=== PATIENT | male | born 1960 | race Caucasian/White ===

== ENCOUNTER 2016-12-19 10:33 | Inpatient (IN) | payer OTHER ==
[~2016-12-19] VITALS: Ht 167.6 cm; Wt 87.1 kg
--- NOTE | 2016-12-19 10:33 | NUR ---
Patient was BIBA at this time.
[2016-12-19 10:40] VITALS: BP 179/114
[2016-12-19] MEDS ORDERED: LISI10TA11 PO (10:42)
[2016-12-19] MEDS ORDERED: METF1000 PO (10:42)
--- NOTE | 2016-12-19 10:46 | NUR ---
Patient taken to bed 04 via gurney per EMS.
[2016-12-19] MEDS ORDERED: NITROGLYCERIN 0.4 MG TAB SL ONE (10:50)
--- NOTE | 2016-12-19 10:50 | NUR ---
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
[2016-12-19] MEDS ORDERED: NACL 0.9% 1,000 ML IV ONE ×2 (11:15→11:55)
[2016-12-19 11:22] LABS: BASOPHILS # (AUTO) 0.1 K/uL (0.00-0.22); BASOPHILS % (AUTO) 0.8 % (0.0-2.0); EOSINOPHILS # (AUTO) 0.3 K/uL (0-0.4); EOSINOPHILS % (AUTO) 2.3 % (0.0-4.0); HEMATOCRIT 40.5 % (36-52); HEMOGLOBIN 13.2 g/dL (12.0-18.0); LYMPHOCYTES # (AUTO) 1.4 K/uL (2.0-11.5); MEAN CORPUSCULAR HEMOGLOBIN 28 pg (27-31); MEAN CORPUSCULAR HGB CONC 33 g/dL (33-37); MEAN CORPUSCULAR VOLUME 86 fL (80-94); MONOCYTES # (AUTO) 0.5 K/uL (0.8-1.0); MONOCYTES % (AUTO) 3.6 % (1.7-9.3); NEUTROPHILS # (AUTO) 10.6 K/uL (1.8-7.7); NEUTROPHILS % (AUTO) 82.3 % (42.2-75.2); PLATELET COUNT (AUTO) 340 K/uL (140-450); RED CELL DISTRIBUTION WIDTH 13.7 % (11.6-13.7); WHITE BLOOD COUNT (AUTO) 12.9 K/uL (4.8-10.8)
--- NOTE | 2016-12-19 11:40 | NUR ---
PT RESTING ON BED;NO ACUTE DISTRESS NOTED AT THSI TIME;WILL CONTINUE TO MONITOR PT.
[2016-12-19 11:42] LABS: INR 1.1 (0.8-1.2); PARTIAL THROMBOPLASTIN TIME 24.3 secs (22-35.6)
[2016-12-19 11:47] LABS: ALBUMIN 2.7 g/dL (3.4-5.0); ANION GAP 13.9 (8-16); CALCIUM 8.6 mg/dL (8.5-10.1); CARBON DIOXIDE 26.7 mmol/L (21-32); CREATININE 0.7 mg/dL (0.6-1.3); POTASSIUM 4.6 mmol/L (3.5-5.1); TOTAL BILIRUBIN 0.2 mg/dL (0.0-1.0); TOTAL PROTEIN, SERUM 7.1 g/dL (6.4-8.2)
--- NOTE | 2016-12-19 12:32 | NUR ---
PT ASKED TO REMOVED NC;PT STATES HE DON'T NEED IT AND HE'S NOT HAVING TROUBLE BREATHING;02 SAT OF 97%.
[2016-12-19 13:13] LABS: LACTIC ACID 2.5 mmol/L (0.4-2.0)
--- NOTE | 2016-12-19 13:38 | NUR ---
BACK FROM CT SCAN;NO ACUTE DISTRESS NOTED;PT PALCED IN ALL MONITORS;WILL CONTINUE TO MONITOR PT;
[2016-12-19 14:15] LABS: BILIRUBIN,URINE NEGATIVE (NEGATIVE); BLOOD, URINE NEGATIVE (NEGATIVE); COLOR,URINE YELLOW (YELLOW); LEUKOCYTE ESTERASE ,URINE NEGATIVE (NEGATIVE); NITRITE, URINE NEGATIVE (NEGATIVE); PROTEIN,URINE 2+ (NEGATIVE); UGLUCOSE 1+ (NEGATIVE); UROBILINOGEN,URINE 0.2 EU/dL (0.2 - 1)
[2016-12-19 14:16] LABS: APPEARANCE,URINE CLEAR (CLEAR)
[2016-12-19 14:19] LABS: BACTERIA,URINE RARE /HPF (None Seen); MUCUS,URINE 2+ /LPF (None Seen); RBC,URINE 0-3 /HPF (0-5); SQUAMOUS EPITHELIAL CELL,UR 0-3 /LPF (0-3 (FEW)); WBC,URINE 0-3 /HPF (0-5)
--- NOTE | 2016-12-19 14:28 | NUR ---
PT STATES HE'S FEELING MUCH BETTER NOW;DENIES ANY PAIN AT THIS TIME;NO ACUTE DISTRESS NOTED;WILL CONTINUE TO MONITOR PT.
[2016-12-19] MEDS ORDERED: AZITHROMYCIN 500 MG in DEXTROSE 5% 250 ML IV ONE (14:30)
[2016-12-19] MEDS ORDERED: cefTRIAXone 1,000 MG VIAL ONE (14:36)
--- NOTE | 2016-12-19 15:13 | NUR ---
Per Lab, LACTID ACID is 2.1. I made this known to Dr. Beaulieu.
[2016-12-19] MEDS ORDERED: AZITHROMYCIN 500 MG INJ VIAL IV ONE (15:34)
--- NOTE | 2016-12-19 16:08 | NUR ---
PT LYING ON BED; AT BEDSIDE;NO ACUTE DISTRESS NOTED;WILL CONTINUE TO MONITOR PT.
[2016-12-19] MEDS ORDERED: ONDANSETRON 4 MG/2 ML VIAL IVP PRN (16:10)
--- NOTE | 2016-12-19 16:13 | NUR ---
CALLED TELE TO GIVE REPORT;THEY WILL CALL BACK;WILL CONTINUE TO MONITOR PT;AND FOLLOW UP TO GIVE REPORT.
--- NOTE | 2016-12-19 16:33 | NUR ---
Patient will be admitted to care of DR SARAVIA. Admited to TELE. Will go to [facility] [address]. Belongings list completed. Report to VIVIANE BARONE.
[2016-12-19 17:00] VITALS: BP 162/113
--- NOTE | 2016-12-19 17:00 | NUR ---
CALLED DR SARAVIA CONCERNING BP 162/113 HR 113. PHONE LINE BUSY. WILL CONTINUE TO CALL.
--- NOTE | 2016-12-19 17:00 | NUR ---
PT ARRIVED ON UNIT FROM ER VIA GURNEY. PT AAOX4 ON ROOM AIR. PT AMBULATED TO BED. PT SHOWS NO S/S OF DISTRESS. PT SKIN IS INTACT. ON TELE MONITORING. IV NOTED ON THE R AC PATENT AND INTACT. SECOND IV NOTED ON THE L HAND PATENT AND INTACT. PT BED IS LOWERED AND FLAT WITH CALL LIGHT WITHIN REACH. PT HAS BACK PAIN 5/10. WILL MEDICATE WITH PRN MEDICATION. DISCUSSED PLAN OF CARE WITH PT. WILL CONTINUE TO MONITOR.
[2016-12-19] MEDS: BLOOD GLUCOSE MONITORING 1 DEV DEV FS SCH ×2 (17:06→20:25)
[2016-12-19] MEDS: INSULIN LISPRO SLIDING SCALE 100 UNITS/ML VIAL SUBQ PRN (17:38)
--- NOTE | 2016-12-19 18:20 | NUR ---
PT C/O SOB. PT PUT ON 2L 02 NC. WILL CONTINUE TO MONITOR.
[2016-12-19] MEDS: ACETAMINOPHEN 325 MG TAB PO PRN (18:46)
--- NOTE | 2016-12-19 19:00 | NUR ---
CALLED AGAIN FOR DR SARAVIA CONCERNING BP 162/113 HR 113. PHONE LINE BUSY. WILL CONTINUE TO CALL.
--- NOTE | 2016-12-19 19:20 | NUR ---
RECEIVED ORDERS FROM DR. LEGGETT. CONCERNING BP 163/119.
--- NOTE | 2016-12-19 19:25 | NUR ---
GAVE REPORT AT BEDSIDE WITH NIGHT NURSE. PT ENDORSED IN STABLE CONDITION.
--- NOTE | 2016-12-19 19:30 | NUR ---
ASSUMED CARE OF PATIENT, AWAKE, ALERT AND ORIENTED. NO COMPLAINS NOTED. 02 NC. NO DISTRESS. CALL LIGHT WITHIN REACH.
--- NOTE | 2016-12-19 19:33 | NUR ---
SPOKE TO DR HIGGINS AND INFORMED HIM ABOUT PATIENT'S ELEVATED BP. ORDERS RECEIVED
--- NOTE | 2016-12-19 20:00 | NUR ---
FAMILY AT BEDSIDE. PLAN OF CARE DISCUSSED WITH PATIENT AND FAMILY MEMBER AT BEDSIDE. CALL LIGHT WITHIN REACH. VITAL SIGNS STABLE.
[2016-12-19] MEDS: amLODIPine 5 MG TAB PO SCH (20:31)
[2016-12-19] MEDS: METOPROLOL 25 MG TAB PO SCH (20:31)
[2016-12-19] MEDS: LEVOFLOXACIN 750 MG/D5W PREMIX 150 ML IV SCH (21:26)
[2016-12-19 22:43] VITALS: BP 163/98
[2016-12-19] MEDS: ALBUTEROL 0.083% 2.5 MG/3 ML NEBU IH PRN (22:46)
[2016-12-19] MEDS: MORPHINE SULFATE 2 MG/ML SYR IVP PRN (23:51)
[2016-12-19 23:53] VITALS: BP 141/91
--- NOTE | 2016-12-20 | NUR ---
BREATHING TREATMENT DONE BY RT. PAIN MEDS GIVEN ORDERED. VITAL SIGNS STABLE NOTED. CALL LIGHT WITHIN REACH.
[2016-12-20] MEDS ORDERED: ZOLPIDEM 10 MG TAB PO PRN (02:20)
[2016-12-20] MEDS ORDERED: LORazepam 0.5 MG TAB PO PRN (02:20)
[2016-12-20 04:10] VITALS: BP 156/98
--- NOTE | 2016-12-20 04:11 | NUR ---
PATIENT SLEEPING WELL. O2 OFF. VITAL SIGNS STABLE NOTED. CALL LIGHT WITHIN REACH.
[2016-12-20] MEDS: MORPHINE SULFATE 2 MG/ML SYR IVP PRN ×3 (04:37→18:07)
[2016-12-20] MEDS: BLOOD GLUCOSE MONITORING 1 DEV DEV FS SCH ×4 (05:22→20:16)
[2016-12-20] MEDS: INSULIN LISPRO SLIDING SCALE 100 UNITS/ML VIAL SUBQ PRN ×2 (06:08→12:38)
[2016-12-20 06:22] LABS: BASOPHILS # (AUTO) 0.1 K/uL (0.00-0.22); BASOPHILS % (AUTO) 0.5 % (0.0-2.0); EOSINOPHILS # (AUTO) 0.1 K/uL (0-0.4); EOSINOPHILS % (AUTO) 1.1 % (0.0-4.0); HEMATOCRIT 33.9 % (36-52); HEMOGLOBIN 11.2 g/dL (12.0-18.0); LYMPHOCYTES # (AUTO) 1.5 K/uL (2.0-11.5); LYMPHOCYTES % (AUTO) 12.6 % (20.5-51.1); MEAN CORPUSCULAR HEMOGLOBIN 29 pg (27-31); MEAN CORPUSCULAR HGB CONC 33 g/dL (33-37); MEAN CORPUSCULAR VOLUME 86 fL (80-94); MONOCYTES # (AUTO) 0.6 K/uL (0.8-1.0); MONOCYTES % (AUTO) 4.9 % (1.7-9.3); NEUTROPHILS # (AUTO) 9.8 K/uL (1.8-7.7); NEUTROPHILS % (AUTO) 80.9 % (42.2-75.2); PLATELET COUNT (AUTO) 306 K/uL (140-450); RED BLOOD CELL COUNT(AUTO) 3.93 MIL/uL (4.20-6.10); RED CELL DISTRIBUTION WIDTH 13.5 % (11.6-13.7); WHITE BLOOD COUNT (AUTO) 12.1 K/uL (4.8-10.8)
[2016-12-20 06:59] LABS: ALBUMIN 2.6 g/dL (3.4-5.0); ANION GAP 12.1 (8-16); CALCIUM 8.6 mg/dL (8.5-10.1); CARBON DIOXIDE 27.8 mmol/L (21-32); CREATININE 0.6 mg/dL (0.6-1.3); POTASSIUM 3.9 mmol/L (3.5-5.1); TOTAL BILIRUBIN 0.2 mg/dL (0.0-1.0); TOTAL PROTEIN, SERUM 6.5 g/dL (6.4-8.2)
--- NOTE | 2016-12-20 07:15 | NUR ---
RECEIVED REPORT FROM NIGHT NURSE. PT IS AAOX4 WELSH SPEAKING. ON O25L VIA FACE MASK, SKIN INTACT IV TO RIGHT AC 20G SALINE LOCK PATENT AND INTACT. PT STATES NO SOB AT THIS TIME. INITIAL ASSESSMENT COMPLETED, REVIEWED PLAN OF CARE WITH PT, PT VERBALIZED UNDERSTANDING. ALL SAFETY PRECAUTIONS MET. CALL LIGHT WITHIN REACH. WILL CONTINUE TO MONITOR.
--- NOTE | 2016-12-20 07:15 | NUR ---
ENDORSED CARE AT BEDSIDE WITH ROBERT BARONE. PATIENT IN STABLE CONDITION.
[2016-12-20 08:00] VITALS: BP 158/94
[2016-12-20] MEDS: ALBUTEROL 0.083% 2.5 MG/3 ML NEBU IH PRN ×2 (08:34→21:38)
--- NOTE | 2016-12-20 09:00 | NUR ---
RECEIVED PATIENT FROM NURSE MARTÍNEZ FOR CONT OF CARE. IV ON THE R AC HEPLOCK PT IS AWKAE AND ORIENTED.
--- NOTE | 2016-12-20 09:02 | NUR ---
PATIENT HAS BEEN SCREENED AND CATEGORIZED HIGH NUTRITION RISK. PATIENT WILL BE SEEN WITHIN 1-2 DAYS OF ADMISSION. 12/20/16-12/21/[address]
[2016-12-20] MEDS: METOPROLOL 25 MG TAB PO SCH ×2 (09:23→20:03)
[2016-12-20] MEDS: LISINOPRIL 10 MG TAB PO SCH (09:23)
--- NOTE | 2016-12-20 09:30 | NUR ---
ENDORSED PLAN OF CARE TO BENITO BARONE.
[2016-12-20] MEDS: ENOXAPARIN 40 MG/0.4 ML SYR SUBQ SCH (09:33)
[2016-12-20] MEDS: amLODIPine 5 MG TAB PO SCH (09:34)
--- NOTE | 2016-12-20 09:38 | NUR ---
PAIN REPORTED ON HIS BACK AT 8/10 MORPHINE GIVEN VIA IV PUSH
--- NOTE | 2016-12-20 10:00 | NUR ---
SPOKE WITH [facility] PHARMACIST WILL GIVE X1 MEDS FOR METOPROLOL, LISINOPRIL AND AMLODIPINE
--- NOTE | 2016-12-20 10:00 | NUR ---
PATIENT VOMITED. STRIP OFF THE BED. CHANGED LINENS AND CHANGED GOWNS. COMMUNICATED WITH CHRISTINE ANSARI PHARMACIST RE: AM MEDS IF CAN BE GIVEN AGAIN
[2016-12-20] MEDS ORDERED: amLODIPine 5 MG TAB PO SCH (10:39)
[2016-12-20] MEDS ORDERED: LISINOPRIL 10 MG TAB PO SCH (10:41)
[2016-12-20] MEDS: ACETAMINOPHEN 325 MG TAB PO PRN (10:41)
[2016-12-20] MEDS ORDERED: METOPROLOL 25 MG TAB PO SCH (10:42)
--- NOTE | 2016-12-20 10:57 | NUR ---
CM NOTE INITIAL REVIEW SENT TO [facility] FAX# [phone] PH# JANUARY [phone]
--- NOTE | 2016-12-20 11:46 | NUR ---
12/20/16 RD INITIAL ASSESSMENT COMPLETED PLEASE REFER TO NUTRITION ASSESSMENT UNDER CARE ACTIVITY FOR ESTIMATED NUTRITIONAL NEEDS. RD RECOMMENDATIONS: 1. CONTINUE ON CARDIAC CCHO 75 GM DIET TOLERATED. 2. ENCOURAGE INCREASED PO INTAKES. --RD TO ADD DIET HEALTH SHAKE BID FOR ADDITIONAL 400 KCAL AND 14 GM PROTEIN PER DAY. 3. RD WILL F/U 3-5 DAYS; MODERATE RISK. JEAN CLAUDE CRAIN RD
[2016-12-20 12:24] VITALS: BP 148/87
--- NOTE | 2016-12-20 12:30 | NUR ---
SEEN PATIENT AWAKE. ADMINSITERED INSULIN ORDERED DUE TO ELEVATE BS LEVEL VS REMAIN ELEVATED WITH BP 148/77 HR 103 WILL NOTIFY
--- NOTE | 2016-12-20 14:30 | NUR ---
DR SARAVIA AT THE BEDSIDE. NOTIFIED RE: ELEVATED BP AND HR. MD TO ADJUST MEDS, REPORTED ON POSSIBLE SIDE EFFECT OF NAUSEA AND VOMITING TO THE PATIENT ON USE OF MORPHINE. MD TO GIVE NORCO FOR PAIN MGT
[2016-12-20 16:00] VITALS: BP 121/87
[2016-12-20] MEDS: HYDROcodone/APAP 5/325 MG 1 TAB TAB PO PRN ×2 (16:55→23:11)
--- NOTE | 2016-12-20 17:02 | NUR ---
PATIENT REPORTED PAIN ON HIS BACK ADMINISTERED NORCO 1 TAB TO CONTROL SX REPOSITIONED PATEINT. PERFORMED SLIGHT CLEAN BATH
--- NOTE | 2016-12-20 17:56 | NUR ---
PER RADIOLOGY [id number] PT NEEDS TO BE NPO AFTER DINNER FOR AT LEAST [address] OF THE ABD TOB PERFORMED.
--- NOTE | 2016-12-20 18:10 | NUR ---
DISREGARD PAIN ASSESSMENT AND MORPHINE ADMINISTRATION. WRONG PATIENT
--- NOTE | 2016-12-20 18:38 | NUR ---
CONSENTS SIGNED BY THE PATIENT. AT THE BEDSIDE. OFFERED [employer] MATE SERVICES BUT FAMILY PREFERS TO TRANSLATE TO THE PATIENT. SIGNED CONSENTS FOR MEDIPORT PLACEMENT AT THE CHART. NEW ORDER FROM DR HIGGINS TO START PT ON IVF AFTER PT IS NPO AFTER MIDNIGHT
--- NOTE | 2016-12-20 18:40 | NUR ---
NO FOOD INTAKE SINCE [id number]
--- NOTE | 2016-12-20 19:02 | NUR ---
ROUNDS MADE PATIENT IS WITH THE . SLEEPING RESTING COMFORTABLY SIDE RAILS UP CALL LIGHT WITHIN REACH
--- NOTE | 2016-12-20 19:10 | NUR ---
RECEIVED PT IN STABLE CONDITION FROM ABISAI OLIVER. NO SOB NO SIGNS OF DISTRESS. PT IS AOX4, [place] SPEAKING, AMBULATORY. VS STABLE ON ROOM AIR. PT WITH IV TO RT AC 20G PATENT, ASYMPTOMATIC, INTACT, SALINE LOCKED. PT DENIES PAIN AT THIS TIME. SKIN IS INTACT. PT IS NPO AT THIS TIME FOR CT OF ABDOMEN TONIGHT. EDUCATED PT THAT HE MAY EAT DINNER AFTER CT THEN HE WILL BE NPO AND ON IVF AFTER MIDNIGHT FOR MEDIPORT PLACEMENT PROCEDURE IN AM, PT VERBALIZED UNDERSTANDING. FAMILY AT BEDSIDE. PLAN OF CARE DISCUSSED WITH PT AND FAMILY. SAFETY MEASURES IN PLACE. CALL LIGHT WITHIN REACH. WILL CONTINUE TO MONITOR.
[2016-12-20 20:00] VITALS: BP 142/84
[2016-12-20] MEDS: LEVOFLOXACIN 750 MG/D5W PREMIX 150 ML IV SCH (20:03)
--- NOTE | 2016-12-20 20:16 | NUR ---
PT TOLERATED DUE MEDS WELL. NO SOB, NO SIGNS OF DISTRESS. IV SITE ASYMPTOMATIC, INTACT, PATENT, IVPB RUNNING. BLOOD SUGAR 147, NO COVERAGE NEEDED. PT DENIES PAIN AT THIS TIME. PLAN OF CARE DISCUSSED WITH PT. SAFETY MEASURES IN PLACE. CALL LIGHT WITHIN REACH. WILL CONTINUE TO MONITOR.
--- NOTE | 2016-12-20 20:35 | NUR ---
SPOKE WITH FLEET SERVICE MANAGER AND ASKED WHEN HE WILL BE COMING FOR PT, FLEET SERVICE MANAGER STATED THAT ORDER FOR CT WAS SUPPOSED TO BE CHANGED TO INCLUDE PELVIS. AM NURSE DID NOT ENDORSE, WILL CALL MD TO CLARIFY ORDER.
--- NOTE | 2016-12-20 20:38 | NUR ---
PAGED MD HIGGINS APPLICATION SUPPORT ADMINISTRATOR FOR MD SARAVIA, WAITING FOR DONAL BACK.
--- NOTE | 2016-12-20 20:39 | NUR ---
SPOKE WITH MD GISELA MD STATED IT IS OK TO CHANGE ORDER TO CT ABD WITH PELVIS.
--- NOTE | 2016-12-20 20:51 | NUR ---
SPOKE WITH ELECTROMECHANICAL ENGINEER, ELECTROMECHANICAL ENGINEER MADE AWARE THAT ORDER WAS CLARIFIED AND CHANGED, ELECTROMECHANICAL ENGINEER STATED HE WILL BE COMING BY SOON TO GET PT FOR CT.
--- NOTE | 2016-12-20 21:40 | NUR ---
PT C/O NOT FEELING WELL, CHECKED VS, STABLE ON ROOM AIR. RT AT BEDSIDE, PT STATED HE WOULD LIKE A BREATHING TREATMENT AT THIS TIME. DURING TREATMENT PT STATED HE FELT BETTER.
--- NOTE | 2016-12-20 21:50 | NUR ---
PT TO CT IN STABLE CONDITION
--- NOTE | 2016-12-20 22:23 | NUR ---
PROVIDED PT WITH SANDWICH AND SNACKS, PT C/O PAIN, REQUESTED NORCO. EXPLAINED THAT MEDICATION CANNOT BE GIVEN UNTIL 6 HOURS AFTER LAST DOSE, PT VERBALIZED UNDERSTANDING AND STATED HE WILL WAIT. NO SOB, NO SIGNS OF DISTRESS. IV SITE ASYMPTOMATIC, INTACT, PATENT, SALINE LOCKED. PLAN OF CARE DISCUSSED WITH PT. SAFETY MEASURES IN PLACE. CALL LIGHT WITHIN REACH. WILL CONTINUE TO MONITOR.
[2016-12-21] VITALS: BP 144/89
--- NOTE | 2016-12-21 00:05 | NUR ---
VS STABLE ON ROOM AIR. NO SOB, NO SIGNS OF DISTRESS. IV SITE ASYMPTOMATIC, INTACT, PATENT, STARTED IVF PER MD ORDER, EDUCATED PT THAT HE IS NPO STARTING NOW, PT VERBALIZED UNDERSTANDING. PT DENIES PAIN AT THIS TIME. PLAN OF CARE DISCUSSED WITH PT. SAFETY MEASURES IN PLACE. CALL LIGHT WITHIN REACH. WILL CONTINUE TO MONITOR.
[2016-12-21] MEDS: DEXT 5% / NACL 0.9% 1,000 ML IV SCH ×2 (00:15→06:50)
--- NOTE | 2016-12-21 02:12 | NUR ---
PT ASLEEP IN BED. NO SOB, NO SIGNS OF DISTRESS. IV SITE ASYMPTOMATIC, INTACT, PATENT, IVF RUNNING. SAFETY MEASURES IN PLACE. CALL LIGHT WITHIN REACH. WILL CONTINUE TO MONITOR.
[2016-12-21 04:00] VITALS: BP 147/86
--- NOTE | 2016-12-21 04:10 | NUR ---
HR TACHY, OTHER VS WNL ON ROOM AIR. NO SOB, NO SIGNS OF DISTRESS. IV SITE ASYMPTOMATIC, INTACT, PATENT, IVF RUNNING. PT DENIES PAIN AT THIS TIME. PLAN OF CARE DISCUSSED WITH PT. SAFETY MEASURES IN PLACE. CALL LIGHT WITHIN REACH. WILL CONTINUE TO MONITOR.
[2016-12-21] MEDS ORDERED: PNEUMOCOCCAL VACCINE 23 MCG/0.5 ML VIAL IMVAC PRN (05:05)
[2016-12-21 05:41] LABS: BASOPHILS % (AUTO) 0.3 % (0.0-2.0); EOSINOPHILS # (AUTO) 0.1 K/uL (0-0.4); EOSINOPHILS % (AUTO) 0.8 % (0.0-4.0); HEMATOCRIT 30.5 % (36-52); LYMPHOCYTES # (AUTO) 1.9 K/uL (2.0-11.5); LYMPHOCYTES % (AUTO) 16.6 % (20.5-51.1); MEAN CORPUSCULAR HEMOGLOBIN 28 pg (27-31); MEAN CORPUSCULAR HGB CONC 33 g/dL (33-37); MEAN CORPUSCULAR VOLUME 86 fL (80-94); MONOCYTES # (AUTO) 0.6 K/uL (0.8-1.0); MONOCYTES % (AUTO) 5.5 % (1.7-9.3); NEUTROPHILS # (AUTO) 8.7 K/uL (1.8-7.7); NEUTROPHILS % (AUTO) 76.8 % (42.2-75.2); PLATELET COUNT (AUTO) 351 K/uL (140-450); RED BLOOD CELL COUNT(AUTO) 3.55 MIL/uL (4.20-6.10); RED CELL DISTRIBUTION WIDTH 13.6 % (11.6-13.7); WHITE BLOOD COUNT (AUTO) 11.3 K/uL (4.8-10.8)
[2016-12-21 06:03] LABS: ALBUMIN 2.6 g/dL (3.4-5.0); ANION GAP 9.5 (8-16); CALCIUM 8.8 mg/dL (8.5-10.1); CARBON DIOXIDE 30.3 mmol/L (21-32); CREATININE 0.8 mg/dL (0.6-1.3); POTASSIUM 3.8 mmol/L (3.5-5.1); TOTAL BILIRUBIN 0.2 mg/dL (0.0-1.0); TOTAL PROTEIN, SERUM 6.4 g/dL (6.4-8.2)
[2016-12-21] MEDS: BLOOD GLUCOSE MONITORING 1 DEV DEV FS SCH ×4 (06:47→20:15)
--- NOTE | 2016-12-21 07:27 | NUR ---
ENDORSED PT IN STABLE CONDITION TO ABISAI GUTIERREZ. ALL NEEDS HAVE BEEN MET AT THIS TIME.
--- NOTE | 2016-12-21 07:28 | NUR ---
RECEIVED REPORT FROM NIGHT RN AT PT BEDSIDE. PT RESTING IN BED. DENIES DISCOMFORT. NO S/S OF ACUTE DISTRESS. AAOX4. IV SITE PATENT AND INTACT. ORIENTED PT TO CALL LIGHT AND ENVIRONMENT. BED IN LOWEST POSITION. SAFETY MEASURES ENSURED.
[2016-12-21 08:00] VITALS: BP 151/90
[2016-12-21] MEDS ORDERED: ceFAZolin 1,000 MG VIAL ONE (08:07)
[2016-12-21] MEDS ORDERED: BUPIVACAINE-MPF/EPI 0.25% 30 ML VIAL INJ ONE (08:08)
[2016-12-21] MEDS ORDERED: LIDOCAINE 1% 0 ML ONE (08:27)
--- NOTE | 2016-12-21 08:34 | NUR ---
PATIENT TAKEN OFF FLOOR FOR OR PROCEDURE. NO S/S OF ACUTE DISTRESS.
[2016-12-21] MEDS ORDERED: fentaNYL 0.05 MG/ML VIAL ONE (09:09)
[2016-12-21] MEDS ORDERED: MIDAZOLAM 2 MG/2 ML VIAL ONE (09:09)
--- NOTE | 2016-12-21 10:22 | NUR ---
PATIENT RETURNED FROM OR. PROCEDURE NOT DONE, DR. BURGOS STATED HE IS NOT DOING THE CASE. PATIENT IN BED, REFUSING ORAL MEDICATIONS AT THIS TIME DUE TO C/O NAUSEA. DR. SARAVIA PAGED.
[2016-12-21] MEDS: amLODIPine 5 MG TAB PO SCH (10:31)
[2016-12-21] MEDS: LISINOPRIL 10 MG TAB PO SCH (10:31)
[2016-12-21] MEDS: METOPROLOL 25 MG TAB PO SCH ×2 (10:32→20:12)
[2016-12-21] MEDS: HYDROcodone/APAP 5/325 MG 1 TAB TAB PO PRN ×3 (10:32→22:43)
[2016-12-21] MEDS: ENOXAPARIN 40 MG/0.4 ML SYR SUBQ SCH (10:33)
--- NOTE | 2016-12-21 10:58 | NUR ---
CM NOTE CONCURRENT REVIEW SENT TO [facility] FAX# [phone] PH# JANUARY [phone]
[2016-12-21 12:00] VITALS: BP 154/91
[2016-12-21] MEDS: INSULIN LISPRO SLIDING SCALE 100 UNITS/ML VIAL SUBQ PRN ×2 (12:10→20:30)
--- NOTE | 2016-12-21 13:50 | NUR ---
FAMILY AT BEDSIDE, MADE AWARE OF UPCOMING PLANS AND PROCEDURES. DR. SARAVIA HERE TO SEE PATIENT. WILL CONTINUE TO MONITOR.
[2016-12-21] MEDS: guaiFENesin/CODEINE 100/10MG 5 ML UDC PO PRN ×2 (14:54→21:11)
[2016-12-21 16:00] VITALS: BP 116/82
--- NOTE | 2016-12-21 18:33 | NUR ---
SPOKE WITH DR. BURGOS. PATIENT WILL HAVE MEDIPORT PLACEMENT IN OR TOMORROW.
--- NOTE | 2016-12-21 19:30 | NUR ---
REPORT GIVEN TO NURSE BANKS AT PT BEDSIDE. PT MADE AWARE OF UPCOMING PLANS AND PROCEDURES. NO S/S OF ACUTE DISTRESS.
--- NOTE | 2016-12-21 19:30 | NUR ---
Patient's Plan of Care was discussed and reviewed with FIELD TECH: ELIA
--- NOTE | 2016-12-21 19:33 | NUR ---
PATIENT IS CURRENTLY AWAKE ALERT ORIENTED RESTING IN BED DENIES PAIN AND DISCOMFORT AT THIS TIME.COUGHING INTERMITTENTLY BUT NO SOB O2SAT IS 98% PATIENT IS AMBULATORY GOING TO THE BATHROOM AND BACK TO BED WITHOUT ASSISTANCE.PATIENT ENCOURAGED TO CALL FOR ASSISTANCE CALL LIGHT WITHIN REACH.
[2016-12-21 20:00] VITALS: BP 164/95
--- NOTE | 2016-12-21 20:49 | NUR ---
NO DISTRESS/SOB/WHEEZING NOTED AT THIS TIME. NO INDICATION FOR HHN PRN TX.
--- NOTE | 2016-12-21 21:11 | NUR ---
PATIENT IS COUGHING ON AND OFF AND HAD REQUESTED FOR MEDICATION TO HELP WITH HIS COUGH EARLIER. BUT, IT WASN'T TIME YET. SO NOW THAT HE IS DUE FOR HIS MEDICATION I ADMINISTERED THE COUGH MEDICATION.
[2016-12-21] MEDS: LEVOFLOXACIN 750 MG/D5W PREMIX 150 ML IV SCH (21:31)
--- NOTE | 2016-12-21 21:34 | NUR ---
MAHSA CURRIE CALLED AND OVER THE PHONE ASKED ME TO TRANSLATE TO THE PATIENT HIS PLAN FOR THE PATIENT AND I WAS ABLE TO TRANSLATE PATIENT'S CONCERN TO MD WELL.MD ASKED FOR ME TO ASK THE PATIENT IF HE WANTS TO HAVE THE MEDIPORT PLACEMENT TOMORROW PATIENT AGREED BUT MD SAID IT WILL HAPPEN AROUND 11AM PATIENT AGREED THEN PHYSICIAN HUNG UP THE PHONE.NO NEW ORDERS RECEIVED FROM MAHSA CURRIE.
--- NOTE | 2016-12-21 22:15 | NUR ---
PATIENT WAS GIVEN FOOD TO EAT BEFORE HE IS NPO AFTER MIDNIGHT.WILL CONTINUE TO MONITOR.
[2016-12-22 00:20] VITALS: BP 142/81
--- NOTE | 2016-12-22 00:30 | NUR ---
PATIENT IS CURRENTLY RESTING IN BED SLEEPING NO DISTRESS.NO COMPLAINS OF PAIN OR DISCOMFORT.WILL CONTINUE TO MONITOR.CALL LIGHT WITHIN REACH.
--- NOTE | 2016-12-22 02:55 | NUR ---
PATIENT IS CURRENTLY RESTING IN BED SLEEPING IN BED.WILL CONTINUE TO MONITOR.
--- NOTE | 2016-12-22 04:00 | NUR ---
PATIENT SLEEPING WELL IN BED IN NO DISTRESS WILL CONTINUE TO MONITOR. CALL LIGHT WITHIN REACH WILL CONTINUE TO MONITOR.
[2016-12-22 04:45] VITALS: BP 154/91
--- NOTE | 2016-12-22 06:37 | NUR ---
PATIENT IS CURRENTLY RESTING IN BED DENIES PAIN AND DISCOMFORT NEEDS MET.WILL CONTINUE TO OBSERVE.
[2016-12-22] MEDS: BLOOD GLUCOSE MONITORING 1 DEV DEV FS SCH ×2 (06:38→11:53)
[2016-12-22 06:49] LABS: BASOPHILS % (AUTO) 0.4 % (0.0-2.0); EOSINOPHILS # (AUTO) 0.1 K/uL (0-0.4); EOSINOPHILS % (AUTO) 1.2 % (0.0-4.0); HEMATOCRIT 29.5 % (36-52); HEMOGLOBIN 9.7 g/dL (12.0-18.0); LYMPHOCYTES % (AUTO) 20.3 % (20.5-51.1); MEAN CORPUSCULAR HEMOGLOBIN 28 pg (27-31); MEAN CORPUSCULAR HGB CONC 33 g/dL (33-37); MEAN CORPUSCULAR VOLUME 86 fL (80-94); MONOCYTES # (AUTO) 0.6 K/uL (0.8-1.0); NEUTROPHILS # (AUTO) 7.1 K/uL (1.8-7.7); NEUTROPHILS % (AUTO) 72.1 % (42.2-75.2); PLATELET COUNT (AUTO) 343 K/uL (140-450); RED BLOOD CELL COUNT(AUTO) 3.43 MIL/uL (4.20-6.10); RED CELL DISTRIBUTION WIDTH 13.7 % (11.6-13.7); WHITE BLOOD COUNT (AUTO) 9.8 K/uL (4.8-10.8)
[2016-12-22 07:22] LABS: ALBUMIN 2.9 g/dL (3.4-5.0); ANION GAP 11.4 (8-16); CALCIUM 8.8 mg/dL (8.5-10.1); CARBON DIOXIDE 29.2 mmol/L (21-32); CREATININE 0.6 mg/dL (0.6-1.3); POTASSIUM 3.6 mmol/L (3.5-5.1); TOTAL BILIRUBIN 0.2 mg/dL (0.0-1.0); TOTAL PROTEIN, SERUM 6.7 g/dL (6.4-8.2)
--- NOTE | 2016-12-22 07:27 | NUR ---
PATIENT STABLE REPORT ENDORSED AT BEDSIDE TO ABISAI LEO.
--- NOTE | 2016-12-22 07:28 | NUR ---
RECEIVED REPORT FROM NIGHT NURSE AT PT BEDSIDE. PT RESTING IN BED. NO S/S OF ACUTE DISTRESS. DENIES PAIN. IV SITE PATENT AND INTACT. CALL LIGHT WITHIN REACH. PT MADE AWARE OF UPCOMING PLANS AND PROCEDURES. WILL CONTINUE TO MONITOR.
[2016-12-22 08:00] VITALS: BP 147/94
--- NOTE | 2016-12-22 10:00 | NUR ---
SPOKE WITH DR. BURGOS PATIENT WAS PLANNED FOR 1200 BUT IS UNABLE TO FIND ANESTHESIOLOGIST FOR PROCEDURE, MD WILL CONTINUE TO FIND.
[2016-12-22] MEDS: amLODIPine 5 MG TAB PO SCH (10:03)
[2016-12-22] MEDS: METOPROLOL 25 MG TAB PO SCH (10:03)
[2016-12-22] MEDS: LISINOPRIL 10 MG TAB PO SCH (10:03)
[2016-12-22] MEDS: ENOXAPARIN 40 MG/0.4 ML SYR SUBQ SCH (10:04)
[2016-12-22] MEDS: HYDROcodone/APAP 5/325 MG 1 TAB TAB PO PRN (11:47)
[2016-12-22 12:00] VITALS: BP 130/86
--- NOTE | 2016-12-22 13:00 | NUR ---
SPOKE WITH DR. BURGOS REGARDING SURGICAL PROCEDURE. MD WILL NOT BE ABLE TO DO PROCEDURE DUE TO LACK OF ANESTHESIOLOGIST. PATIENT TO BE D/C'D HOME WITH FOLLOW UP APPOINTMENT OUTPATIENT. PATIENT MADE AWARE, VERBALIZED UNDERSTANDING.
--- NOTE | 2016-12-22 14:20 | NUR ---
SPOKE WITH DR. SARAVIA. PATIENT OKAY TO BE D/C'D HOME WITH FOLLOW UP APPOINTMENTS.
[2016-12-22 14:31] LABS: HEMATOCRIT 27.7 % (36-52); HEMOGLOBIN 9.1 g/dL (12.0-18.0)
[2016-12-22] MEDS: guaiFENesin/CODEINE 100/10MG 5 ML UDC PO PRN (15:31)
[2016-12-22 16:00] VITALS: BP 131/69
--- NOTE | 2016-12-22 16:15 | NUR ---
PATIENT DISCHARGE INSTRUCTIONS GIVEN TO PATIENT AND , VERBALIZED UNDERSTANDING. NO S/S OF ACUTE DISTRESS. DENIES DISCOMFORT. VS STABLE. IV REMOVED, CANULA INTACT. AAOX4. PATIENT AMBULATORY WITH CANE. DISCHARGE FOLLOW UP INSTRUCTIONS GIVEN, VERBALIZED UNDERSTANDING. PATIENT WHEELED TO FRONT LOBBY WITH .
== END 2016-12-22 16:15 | disposition home or self-care (01) | DRG 136 ==
LOC: MED 10:33 → MTU 16:16
PROVIDERS: ADMIT Hospitalist; ATTEND Hospitalist
DX: C78.02 Secondary malignant neoplasm of left lung (principal); C78.1 Secondary malignant neoplasm of mediastinum; C78.7 Secondary malignant neoplasm of liver and intrahepatic bile duct; C79.72 Secondary malignant neoplasm of left adrenal gland; C79.00 Secondary malignant neoplasm of unspecified kidney and renal pelvis; I10 Essential (primary) hypertension; C80.1 Malignant (primary) neoplasm, unspecified; E11.9 Type 2 diabetes mellitus without complications; Z87.891 Personal history of nicotine dependence
CPT/HCPCS: 36415; 70450; 70491; 71010; 71275; 78582; 80053; 81001; 82948; 83605; 84484; 85018; 85025; 85610; 85730; 86886; 86900; 86901; 87040; 87081; 93005; 94640; 96361; 96365; 96367; 99291; J0456; J0690; J0696; J1644; J1650; J1815; J1956; J2001; J2250; J2270; J2405; J3010; J3490; J7030; J7042; J7613; Q0092; Q9967

== ENCOUNTER 2017-01-24 07:10 | Inpatient (IN) | payer OTHER ==
[~2017-01-24] VITALS: Ht 167.6 cm; Wt 82.6 kg
[~2017-01-24 07:10] MED LIST: LISI10TA11 PO; METF1000 PO
[2017-01-24 07:33] VITALS: BP 134/97
[2017-01-24] MEDS ORDERED: MORP10SO PO (07:41)
[2017-01-24] MEDS ORDERED: MEGE40TA4 PO (07:41)
[2017-01-24] MEDS ORDERED: ALPR0.5T2 PO (07:41)
[2017-01-24] MEDS ORDERED: BISA-13 PO (07:41)
[2017-01-24] MEDS ORDERED: ASPI81CT89 PO (07:41)
[2017-01-24] MEDS ORDERED: FOLI2000 PO (07:41)
[2017-01-24] MEDS ORDERED: SENN-72 PO (07:41)
[2017-01-24] MEDS ORDERED: LEVA0.042 IH (07:41)
[2017-01-24] MEDS ORDERED: METO25TA PO (07:41)
[2017-01-24] MEDS ORDERED: LACT10SO11 (07:41)
[2017-01-24] MEDS ORDERED: GLIP5TAB4 PO (07:41)
--- NOTE | 2017-01-24 07:43 | NUR ---
PT AMBULATED TO BED 6 AT THIS TIME.
--- NOTE | 2017-01-24 07:49 | NUR ---
Note undone in EDM - 01/24/17 at 0938 by MEDSS 56M BIB C/O SHORTNESS OF BREATH X 1 MONTH; BL LUNG SOUNDS CLEAR, RR EVEN/UNLABORED AT THIS TIME; STATES PT HAS PRODUCTIVE COUGH X 1.5 YEARS; PT A&O, PERRLA, BUT APHASIC D/T HX OF VOCAL PARALYSIS; PT ABLE TO FOLLOW COMMANDS, ABLE TO UNDERSTAND WHAT IS SPOKEN TO/ASKED OF PT, BUT UNABLE TO VERBALLY RESPOND; PT C/O UPPER BACK PAIN, RADIATES TO LEFT UPPER CHEST, SHARP, 10/10 X 4 DAYS; PT DENIES TRAUMA OR INJURY TO BACK AT THIS TIME; PT C/O CONSTIPATION X 5 DAYS, BUT DENIES N/V/D AT THIS TIME; ABDOMEN SOFT, NON-TENDER, ACTIVE BOWEL SOUNDS X 4 QUADRANTS; PT NOTED W/SMALL OPEN, PINK, DRIED BLISTER ON LEFT BACK FROM PREVIOUS HOSPITAL STAY AT [facility] FOR SOB IN DECEMBER; PT AMBULATES W/ CANE; TACHYCARDIA NOTED ON MONITOR; PT RECENTLY DIAGNOSED W/ MESOTHELIOMA; HX:DM, HTN, HIGH CHOLESTEROL; PT PLACED ON MONITOR, RESTING IN BED W/ HOB ELEVATED AND IN LOWEST POSITION; POSITIONED FOR COMFORT; ER MD MADE AWARE OF STATUS. WILL CONTINUE TO MONITOR.
--- NOTE | 2017-01-24 07:49 | NUR ---
56M BIB C/O SHORTNESS OF BREATH X 1 MONTH; BL LUNG SOUNDS CLEAR, RR EVEN/UNLABORED AT THIS TIME; STATES PT HAS PRODUCTIVE COUGH X 1.5 YEARS; PT A&OX4, PERRLA, W/ SOFT SPEECH D/T HX OF VOCAL PARALYSIS; PT C/O UPPER BACK PAIN, RADIATES TO LEFT UPPER CHEST, SHARP, 10/10 X 4 DAYS; PT DENIES TRAUMA OR INJURY TO BACK AT THIS TIME; PT C/O CONSTIPATION X 5 DAYS, BUT DENIES N/V/D AT THIS TIME; ABDOMEN SOFT, NON-TENDER, ACTIVE BOWEL SOUNDS X 4 QUADRANTS; PT NOTED W/SMALL OPEN, PINK, DRIED BLISTER ON LEFT BACK FROM PREVIOUS HOSPITAL STAY AT [facility] FOR SOB IN DECEMBER; PT AMBULATES W/ CANE; TACHYCARDIA NOTED ON MONITOR; PT RECENTLY DIAGNOSED W/ MESOTHELIOMA; HX:DM, HTN, HIGH CHOLESTEROL; PT PLACED ON MONITOR, RESTING IN BED W/ HOB ELEVATED AND IN LOWEST POSITION; POSITIONED FOR COMFORT; ER MD MADE AWARE OF STATUS. WILL CONTINUE TO MONITOR. Addendum: 01/24/17 at 1122 by [employer] PT NOTED W/ PORT FOR CHEMOTHERAPY TO RT UPPER CHEST; PORT COVERED W/ TAPE AT THIS TIME; NO DRAINAGE OR BLEEDING FROM SITE NOTED; NO C/O DISCOMFORT TO SITE AT THIS TIME.
--- NOTE | 2017-01-24 07:50 | NUR ---
WARM BLANKET PROVIDED TO PT FOR COMFORT.
--- NOTE | 2017-01-24 07:59 | NUR ---
XRAY AT BEDSIDE.
--- NOTE | 2017-01-24 08:04 | NUR ---
LAB AT BEDSIDE.
[2017-01-24 08:10] LABS: BASOPHILS # (AUTO) 0.1 K/uL (0.00-0.22); BASOPHILS % (AUTO) 0.7 % (0.0-2.0); EOSINOPHILS # (AUTO) 0.2 K/uL (0-0.4); HEMATOCRIT 38.5 % (36-52); HEMOGLOBIN 12.3 g/dL (12.0-18.0); LYMPHOCYTES # (AUTO) 1.1 K/uL (2.0-11.5); LYMPHOCYTES % (AUTO) 10.7 % (20.5-51.1); MEAN CORPUSCULAR HEMOGLOBIN 27 pg (27-31); MEAN CORPUSCULAR HGB CONC 32 g/dL (33-37); MEAN CORPUSCULAR VOLUME 83 fL (80-94); MONOCYTES # (AUTO) 0.8 K/uL (0.8-1.0); MONOCYTES % (AUTO) 7.4 % (1.7-9.3); NEUTROPHILS # (AUTO) 8.4 K/uL (1.8-7.7); NEUTROPHILS % (AUTO) 79.2 % (42.2-75.2); PLATELET COUNT (AUTO) 545 K/uL (140-450); RED BLOOD CELL COUNT(AUTO) 4.62 MIL/uL (4.20-6.10); RED CELL DISTRIBUTION WIDTH 13.9 % (11.6-13.7); WHITE BLOOD COUNT (AUTO) 10.6 K/uL (4.8-10.8)
[2017-01-24 08:19] LABS: ANION GAP 14.3 (8-16); CALCIUM 9.4 mg/dL (8.5-10.1); CARBON DIOXIDE 24.7 mmol/L (21-32); CREATININE 0.8 mg/dL (0.6-1.3)
[2017-01-24 08:25] LABS: ALBUMIN 2.7 g/dL (3.4-5.0); TOTAL BILIRUBIN 0.1 mg/dL (0.0-1.0); TOTAL PROTEIN, SERUM 8.2 g/dL (6.4-8.2)
[2017-01-24 08:29] LABS: INR 1.1 (0.8-1.2); PARTIAL THROMBOPLASTIN TIME 33.4 secs (22-35.6); PROTHROMBIN TIME 10.4 secs (10.8-13.4)
--- NOTE | 2017-01-24 09:18 | NUR ---
ER MD DR. MCCOLLUM EVALUATING PT AT BEDSIDE.
[2017-01-24] MEDS ORDERED: MORPHINE SULFATE 4 MG/ML SYR IVP ONE (09:25)
[2017-01-24] MEDS ORDERED: NACL 0.9% 1,000 ML IV ONE ×2 (09:25→10:10)
[2017-01-24] MEDS ORDERED: MORPHINE SULFATE 4 MG/ML SYR ONE (09:36)
--- NOTE | 2017-01-24 09:50 | NUR ---
PT STATES RELIEF FROM PAIN AFTER ADMINISTRATION OF PAIN MEDICATION FROM 06/04 TO 02/02 AT THIS TIME; PT STATES FEELS BETTER, AND DOES NOT WANT ADDITIONAL PAIN MEDICATION AT THIS TIME; VSS; RR EVEN/UNLABORED; NO ACUTE DISTRESS NOTED AT THIS TIME; ER MD DR. MCCOLLUM NOTIFIED; WILL CONTINUE TO MONITOR.
--- NOTE | 2017-01-24 10:14 | NUR ---
IV INSERTED TO RT AC 20 GAUGE PER ER MD DR. MCCOLLUM D/T CT OF THE CHEST W/ INTRAVENOUS CONTRAST ORDER; IV PATENT, FLUSHES WELL; PT DENIES PAIN TO SITE; NO REDNESS, SWELLING, OR INFILTRATION NOTED TO SITE AT THIS TIME; PT TOLERATED PROCEDURE WELL. RR EVEN/UNLABORED, WILL CONTINUE TO MONITOR.
--- NOTE | 2017-01-24 10:42 | NUR ---
Patient going to CT via imani aguilar.
--- NOTE | 2017-01-24 10:59 | NUR ---
Dr. Orellana stopped by ER MD office and s/w Dr. Silverman about patient admission.
--- NOTE | 2017-01-24 11:02 | NUR ---
Patient back from CT via imani aguilar.
--- NOTE | 2017-01-24 11:25 | NUR ---
PT APPEARS TO BE RESTING COMFORTABLY IN BED; NO ACUTE DISTRESS NOTED AT THIS TIME; RR EVEN/UNLABORED; WILL CONTINUE TO MONITOR.
[2017-01-24] MEDS: DEXT 5% / NACL 0.45% 1,000 ML IV SCH (11:43)
[2017-01-24] MEDS ORDERED: cloNIDine 0.1 MG TAB PO PRN (11:45)
[2017-01-24] MEDS ORDERED: hydrALAZINE 20 MG/ML VIAL IVP PRN (11:45)
[2017-01-24] MEDS ORDERED: ACETAMINOPHEN 325 MG TAB PO PRN (11:45)
[2017-01-24] MEDS ORDERED: HYDROcodone/APAP 5/325 MG 1 TAB TAB PO PRN ×2 (11:45)
[2017-01-24] MEDS ORDERED: ONDANSETRON 4 MG/2 ML VIAL IVP PRN (11:45)
--- NOTE | 2017-01-24 12:21 | NUR ---
CALLED MST TO GIVE REPORT; RN TO CALL BACK IN 3 MINUTES.
--- NOTE | 2017-01-24 12:26 | NUR ---
REPORT GIVEN TO ABISAI GUTIERREZ AT THIS TIME; PER ER MD DR. MCCOLLUM, AWAITING CT RESULTS BEFORE TAKING PT TO FLOOR; NO ACUTE DISTRESS NOTED AT THIS TIME; WILL CONTINUE TO MONITOR.
--- NOTE | 2017-01-24 12:33 | NUR ---
RT AT BEDSIDE ADMINISTERING BREATHING TX.
--- NOTE | 2017-01-24 12:57 | NUR ---
Patient will be admitted to care of DR. BOWMAN. Admited to TELEMETRY. Will go to room 111B. Belongings list completed. Report to ABISAI GUTIERREZ.
[2017-01-24 13:00] VITALS: BP 161/100
--- NOTE | 2017-01-24 13:00 | NUR ---
PATIENT ADMITTED FROM ER. PATIENT IS AMBULATORY TO BED. AAOX4. DENIES SOB AT THIS TIME. NO S/S OF RESPIRATORY DISTRESS. MALAY SPEAKING. IV SITE PATENT AND INTACT. SBP INCREASED >150. WILL CONTINUE TO MONITOR AT THIS TIME. PT ORIENTED TO HOSPITAL ENVIRONMENT. CALL LIGHT WITHIN REACH. BED IN LOWEST POSITION. FALL PRECAUTIONS IN PLACE. ALL NEEDS MET AT THIS TIME. WILL CONTINUE TO MONITOR.
[2017-01-24] MEDS: PROMETH/CODEINE 6.25-10MG/5ML 5 ML UDC PO PRN ×3 (14:42→22:55)
[2017-01-24] MEDS: MORPHINE SULFATE 2 MG/ML SYR IVP PRN ×2 (14:45→18:48)
--- NOTE | 2017-01-24 15:00 | NUR ---
PT MEDICATED FOR PAIN AND COUGH. NO S/S OF ACUTE DISTRESS NOTED AT THIS TIME. PT RESTING IN BED.
[2017-01-24 16:00] VITALS: BP 138/92
--- NOTE | 2017-01-24 19:20 | NUR ---
ENDORSED PLAN OF CARE TO NIGHT RN AT PT BEDSIDE. NO S/S OF ACUTE DISTRESS NOTED.
--- NOTE | 2017-01-24 19:25 | NUR ---
RECEIVED PT ON BED, AAOX4, KITTITIAN SPEAKING, VITAL SIGNS TAKEN, BP 151/93, DENIES ANY PAIN, OCCASIONAL PRODUCTIVE COUGH NOTED, PLAN OF CARE DISCUSSED WITH PT AND AT BEDSIDE, SAFETY MEASURES IN PLACE, CALL LIGHT WITHIN REACH.
[2017-01-24] MEDS: ALBUTEROL 0.083% 2.5 MG/3 ML NEBU IH SCH (19:30)
[2017-01-24] MEDS: IPRATROPIUM 0.02% 0.5 MG/2.5 ML NEBU IH SCH (19:30)
[2017-01-24 20:00] VITALS: BP 151/93
[2017-01-24] MEDS: LORazepam 2 MG/ML VIAL IVP PRN (20:33)
--- NOTE | 2017-01-24 20:40 | NUR ---
PT ANXIOUS, ATIVAN IVP GIVEN PRN, ALL NEEDS ATTENDED.
[2017-01-24] MEDS ORDERED: ZOLPIDEM 5 MG TAB PO PRN (22:35)
--- NOTE | 2017-01-24 23:00 | NUR ---
PT REQUESTING SOMETHING TO HELP HIM SLEEP, PAGED DR SARAVIA WITH NEW ORDER, JUANITO PO GIVEN PRN, MONITORED CLOSELY.
[2017-01-25] VITALS: BP 137/90
[2017-01-25] MEDS: ALBUTEROL 0.083% 2.5 MG/3 ML NEBU IH SCH ×3 (00:37→13:26)
[2017-01-25] MEDS: IPRATROPIUM 0.02% 0.5 MG/2.5 ML NEBU IH SCH ×3 (00:37→13:26)
[2017-01-25] MEDS: LORazepam 2 MG/ML VIAL IVP PRN (01:00)
--- NOTE | 2017-01-25 01:10 | NUR ---
PT TOOK OFF TELE MONITOR, RESTLESS AND ANXIOUS, PT ASKING FOR TABLET FOR ANXIETY, NICO RN EXPLAINED THE MEDICATION IS IVP, ATIVAN IVP GIVEN PRN, MONITORED CLOSELY.
--- NOTE | 2017-01-25 02:30 | NUR ---
PT STILL AWAKE AND RESTLESS, KEEPS ON GETTING OOB, ENCOURAGE TO GO BACK TO BED AND GET SOME SLEEP, BED ALARM ON.
--- NOTE | 2017-01-25 02:50 | NUR ---
PT ASSISTED TO THE BR, VOIDED FREELY, NO BM JUST PASSING GAS, MONITORED CLOSELY.
[2017-01-25 04:00] VITALS: BP 139/92
[2017-01-25] MEDS: MORPHINE SULFATE 2 MG/ML SYR IVP PRN (04:27)
--- NOTE | 2017-01-25 05:29 | NUR ---
PT REQUESTING FOR SNACK, SANDWICH PROVIDED, CONSUMED 100%, AMBULATED TO BR AND VOIDED FREELY, IVF INFUSING WELL.
[2017-01-25] MEDS: PROMETH/CODEINE 6.25-10MG/5ML 5 ML UDC PO PRN (05:47)
[2017-01-25 06:43] LABS: BASOPHILS % (AUTO) 0.6 % (0.0-2.0); EOSINOPHILS # (AUTO) 0.1 K/uL (0-0.4); EOSINOPHILS % (AUTO) 1.2 % (0.0-4.0); HEMATOCRIT 34.5 % (36-52); HEMOGLOBIN 11.4 g/dL (12.0-18.0); LYMPHOCYTES # (AUTO) 1.3 K/uL (2.0-11.5); LYMPHOCYTES % (AUTO) 16.4 % (20.5-51.1); MEAN CORPUSCULAR HEMOGLOBIN 28 pg (27-31); MEAN CORPUSCULAR HGB CONC 33 g/dL (33-37); MEAN CORPUSCULAR VOLUME 84 fL (80-94); MONOCYTES # (AUTO) 0.7 K/uL (0.8-1.0); MONOCYTES % (AUTO) 8.4 % (1.7-9.3); NEUTROPHILS % (AUTO) 73.4 % (42.2-75.2); PLATELET COUNT (AUTO) 481 K/uL (140-450); RED BLOOD CELL COUNT(AUTO) 4.13 MIL/uL (4.20-6.10); RED CELL DISTRIBUTION WIDTH 14.4 % (11.6-13.7); WHITE BLOOD COUNT (AUTO) 8.1 K/uL (4.8-10.8)
[2017-01-25 07:05] LABS: ALBUMIN 2.5 g/dL (3.4-5.0); ANION GAP 13.8 (8-16); CARBON DIOXIDE 26.1 mmol/L (21-32); CREATININE 0.7 mg/dL (0.6-1.3); MAGNESIUM 1.6 mg/dL (1.8-2.4); POTASSIUM 3.9 mmol/L (3.5-5.1); TOTAL BILIRUBIN 0.2 mg/dL (0.0-1.0); TOTAL PROTEIN, SERUM 7.6 g/dL (6.4-8.2)
--- NOTE | 2017-01-25 07:16 | NUR ---
PT SLEEPING, NO SIGNS OF DISTRESS, REPORT GIVEN TO ABISAI GUTIERREZ FOR CONTINUITY OF CARE.
--- NOTE | 2017-01-25 07:17 | NUR ---
RECEIVED REPORT FROM NIGHT NURSE AT PT BEDSIDE. PT RESTING IN BED, AWAKENS TO NAME, LETHARGIC. NO S/S OF RESPIRATORY DISTRESS OR SOB. DENIES PAIN AT THIS TIME. BED IN LOWEST POSITION. ALERT AND ORIENTED X4. CALL LIGHT WITHIN REACH. WILL CONTINUE TO MONITOR.
[2017-01-25] MEDS: DEXT 5% / NACL 0.45% 1,000 ML IV SCH (07:43)
[2017-01-25 08:00] VITALS: BP 158/99
[2017-01-25] MEDS ORDERED: ENOXAPARIN 30 MG/0.3 ML SYR SUBQ SCH (09:00)
[2017-01-25] MEDS ORDERED: DIAZEPAM 2 MG TAB PO PRN (10:00)
[2017-01-25] MEDS ORDERED: DIAZ2TAB6 PO (10:01)
[2017-01-25] MEDS ORDERED: GUAI600T72 PO (10:01)
--- NOTE | 2017-01-25 10:14 | NUR ---
PATIENT HAS BEEN SCREENED AND CATEGORIZED LOW NUTRITION RISK. PATIENT WILL BE SEEN WITHIN 7 DAYS OF ADMISSION. 01/30/[address]
--- NOTE | 2017-01-25 10:20 | NUR ---
DR. BOWMAN SPOKE WITH PATIENT AND REGARDING PLAN OF CARE AND FOLLOW UP APPOINTMENTS. NO S/S OF ACUTE DISTRESS NOTED.
[2017-01-25] MEDS ORDERED: MAG SULF 2000 MG/WATER PREMIX 100 ML IV SCH (11:00)
--- NOTE | 2017-01-25 11:33 | NUR ---
CM NOTE INITIAL REVIEW AND ORDER FOR MED NEBULIZER SENT TO [facility] FAX# [phone] JANUARY PH# [phone]
[2017-01-25 12:00] VITALS: BP 158/102
--- NOTE | 2017-01-25 12:06 | NUR ---
NIKA NOTE FAXED ORDER FOR MED NEBULIZER TO [facility] F: [phone] AND LEFT MESSAGES FOR NIKA JACKSON AND MARYBETH PH# [phone] [address]T 273
--- NOTE | 2017-01-25 12:37 | NUR ---
CM NOTE SPOKE WITH MARYBETH OF [facility] # [phone] AND HE SAID MED NUBULIZER WILL BE DELIVERED TODAY BEDSIDE ETA BETWEEN 1500 AND 1700. CHARGE NURSE BERENICE FAIRBANKS
--- NOTE | 2017-01-25 14:38 | NUR ---
PATIENT AT BEDSIDE. MADE AWARE OF UPCOMING PLAN OF CARE AND FOLLOW UP APPOINTMENTS. PATIENT DENIES DISCOMFORT AT THIS TIME. NO S/S OF ACUTE DISTRESS NOTED.
--- NOTE | 2017-01-25 15:00 | NUR ---
SPOKE WITH DR. BOWMAN REGARDING PATIENT'S CONCERNS REGARDING MISSING AN APPOINTMENT FOR VITAMIN SHOT. SPOKE WITH DR. BOWMAN, IS UNABLE TO PROVIDE PATIENT'S REQUEST DUE TO PATIENT'S UNKNOWN DOSAGE OR INDICATION.
--- NOTE | 2017-01-25 15:50 | NUR ---
DISCHARGE INSTRUCTIONS GIVEN TO PATENT AND . FOLLOW UP APPOINTMENTS MADE PER FOR FOLLOW UP CHEMOTHERAPY. PATIENT IS AAOX4. NEW PRESCRIPTIONS GIVEN WITH MED RECONCILIATION AND TEACHING, VERBALIZED UNDERSTANDING. PATIENT RECEIVED NEBULIZER AT BEDSIDE. IVS REMOVED, CANULAS INTACT. PATIENT AMBULATORY TO WHEELCHAIR NO S/S OF RESPIRATORY DISTRESS. DENIES DISCOMFORT. WHEELED TO FRONT LOBBY.
[2017-01-25] MEDS ORDERED: metFORMIN 500 MG TAB PO SCH (17:00)
[2017-01-25] MEDS ORDERED: guaiFENesin 600 MG TABER PO SCH (21:00)
[2017-01-26] MEDS ORDERED: glipiZIDE 5 MG TAB PO SCH (08:00)
[2017-01-26] MEDS ORDERED: SENNA 8.6 MG TAB PO SCH (09:00)
[2017-01-26] MEDS ORDERED: METOPROLOL 25 MG TAB PO SCH (09:00)
[2017-01-26] MEDS ORDERED: MEGESTROL 40 MG TAB PO SCH (09:00)
[2017-01-26] MEDS ORDERED: LACTULOSE 20 GM/30 ML UDC PO SCH (09:00)
== END 2017-01-25 15:50 | disposition home or self-care (01) | DRG 694 ==
LOC: MED 07:10 → MTU 11:48
PROVIDERS: ADMIT Hospitalist; ATTEND Hospitalist
DX: C45.7 Mesothelioma of other sites (principal); J38.00 Paralysis of vocal cords and larynx, unspecified; I15.2 Hypertension secondary to endocrine disorders; I10 Essential (primary) hypertension; C79.70 Secondary malignant neoplasm of unspecified adrenal gland; E11.9 Type 2 diabetes mellitus without complications; F41.9 Anxiety disorder, unspecified; J45.909 Unspecified asthma, uncomplicated; Z79.82 Long term (current) use of aspirin; Z79.84 Long term (current) use of oral hypoglycemic drugs; Z79.891 Long term (current) use of opiate analgesic; Z79.899 Other long term (current) drug therapy
CPT/HCPCS: 36415; 71010; 71260; 80053; 82948; 83735; 83880; 84484; 85025; 85379; 85610; 85730; 87081; 93005; 94640; 96361; 96374; 99285; J1650; J2060; J2270; J3475; J7030; J7613; J7644; Q0092; Q9967

== ENCOUNTER 2017-01-27 17:53 | Emergency (ER) | payer OTHER ==
[~2017-01-27] VITALS: Ht 167.6 cm; Wt 81.6 kg
[~2017-01-27 17:53] MED LIST changes: +ASPIRIN81 M1 PO; +CEPHULAC10 GM/152; +FOLIC ACID PO; +GLUCOPHAGE1000 MG PO; +GLUCOTROL5 MG PO; +LAXATIVE PO; -LISI10TA11 PO; +LOPRESSOR25 MG PO; +MEGESTROL ACETA40 MG PO; -METF1000 PO; +MORPHINE S10 MG/0.5 PO; +MUCINEX600 M1 PO; +SENNA8.6 M1 PO; +VALIUM2 M1 PO; +XANAX0.5 MG PO; +XOPENEX HF0.045 MG/A IH; +ZESTRIL10 MG PO
[2017-01-27 17:55] VITALS: BP 140/84
[2017-01-27] MEDS ORDERED: ASPIRIN 325 MG TAB PO ONE (18:00)
--- NOTE | 2017-01-27 18:13 | NUR ---
Patient ambulated to bed 6. RN evaluating patient at bedside.
--- NOTE | 2017-01-27 18:14 | NUR ---
56/M BIB C/O CHEST PAIN X30 MINUTES.HX DM, MESOTHELIOMA,HTN& HYPERLIPIDEMIA. DENIES N/V/D; SKIN IS PINK/WARM/DRY; AAOX4 WITH EVEN AND STEADY GAIT; LUNGS CLEAR BL; HR TACHYCARDIA. PT DENIES ANY FEVER, SOB, OR COUGH AT THIS TIME; PATIENT STATES PAIN OF 8/10 AT THIS TIME; PATIENT POSITIONED FOR COMFORT; HOB ELEVATED; BEDRAILS UP X2; BED DOWN. ER MD MADE AWARE OF PT STATUS.
--- NOTE | 2017-01-27 19:08 | NUR ---
Pt report given to ABISAI CONNOLLY. Transfer of care at this time.
[2017-01-27] MEDS ORDERED: NACL 0.9% 1,000 ML IV ONE (19:10)
[2017-01-27] MEDS ORDERED: ALBUTEROL SULFATE/IPRATROPIU 3 ML SOL IH ONE ×2 (19:10→21:50)
[2017-01-27] MEDS ORDERED: LORazepam 2 MG/ML VIAL IVP ONE (19:40)
[2017-01-27] MEDS ORDERED: MORPHINE SULFATE 4 MG/ML SYR IVP ONE (19:45)
[2017-01-27] MEDS ORDERED: ONDANSETRON 4 MG/2 ML VIAL IVP ONE (19:45)
--- NOTE | 2017-01-27 23:00 | NUR ---
IV removed, catheter intact and site benign. Applied folded 4x4 gauze and tape to stop bleeding.
[2017-01-27 23:02] VITALS: BP 127/84
--- NOTE | 2017-01-27 23:02 | NUR ---
Patient discharged with v/s stable. Written and verbal after care instructions given and explained. Patient alert, oriented and verbalized understanding of instructions. Ambulatory with steady gait. All questions addressed prior to discharge. ID band removed. Patient advised to follow up with PMD. Rx of ALBUTEROL 0.083% DONELL given. Patient educated on indication of medication including possible reaction and side effects. Opportunity to ask questions provided and answered.
== END 2017-01-27 23:02 | disposition home or self-care (01) ==
LOC: MED 17:53
DX: C34.90 Malignant neoplasm of unspecified part of unspecified bronchus or lung (principal); I10 Essential (primary) hypertension; E11.9 Type 2 diabetes mellitus without complications; M54.9 Dorsalgia, unspecified; Z85.89 Personal history of malignant neoplasm of other organs and systems; Z79.82 Long term (current) use of aspirin; Z79.899 Other long term (current) drug therapy
CPT/HCPCS: 36415; 36600; 71010; 71275; 80053; 82803; 83605; 83880; 84484; 85025; 85379; 85610; 85730; 87040; 93005; 94640; 96361; 96374; 96375; 99284; J2060; J2270; J2405; J7030; J7620; Q0092; Q9967

== ENCOUNTER 2017-02-03 00:49 | Inpatient (IN) | payer OTHER ==
[~2017-02-03] VITALS: Ht 167.6 cm; Wt 81.6 kg
[~2017-02-03 00:49] MED LIST changes: +ASPI81CT89 PO; -ASPIRIN81 M1 PO; +BISA-13 PO; -CEPHULAC10 GM/152; +DIAZ2TAB6 PO; +FOLI2000 PO; -FOLIC ACID PO; +GLIP5TAB4 PO; -GLUCOPHAGE1000 MG PO; -GLUCOTROL5 MG PO; +GUAI600T72 PO; +LACT10SO11; -LAXATIVE PO; +LEVA0.042 IH; -LOPRESSOR25 MG PO; +MEGE40TA4 PO; -MEGESTROL ACETA40 MG PO; +METF1000 PO; +METO25TA PO; +MORP10SO PO; -MORPHINE S10 MG/0.5 PO; -MUCINEX600 M1 PO; +SENN-72 PO; -SENNA8.6 M1 PO; -VALIUM2 M1 PO; -XANAX0.5 MG PO; -XOPENEX HF0.045 MG/A IH; -ZESTRIL10 MG PO
[2017-02-03 00:51] VITALS: BP 150/90
--- NOTE | 2017-02-03 00:58 | NUR ---
PATIENT AMBULATED TO ER BED 3.
--- NOTE | 2017-02-03 01:05 | NUR ---
PATIENT BEING EVALUATED BY DR. SRINIVASAN.
[2017-02-03] MEDS ORDERED: ALBUTEROL SULFATE/IPRATROPIU 3 ML SOL IH ONE ×2 (01:10→03:55)
--- NOTE | 2017-02-03 01:30 | NUR ---
56Y/M PT. BIB FAMILY TO ED WITH C/O SOB X 1 HR. FAMILY STATE PT. HAVING SOB AND COUGH TODAY. HX. MESPTHELIOMA ONGING CHEMOTHERAPY, DM, HTN.
[2017-02-03 01:40] LABS: HEMATOCRIT 37.8 % (36-52); HEMOGLOBIN 12.1 g/dL (12.0-18.0); MEAN CORPUSCULAR HEMOGLOBIN 27 pg (27-31); MEAN CORPUSCULAR HGB CONC 32 g/dL (33-37); MEAN CORPUSCULAR VOLUME 83 fL (80-94); PLATELET COUNT (AUTO) 597 K/uL (140-450); RED BLOOD CELL COUNT(AUTO) 4.55 MIL/uL (4.20-6.10); RED CELL DISTRIBUTION WIDTH 14.7 % (11.6-13.7)
[2017-02-03 01:54] LABS: ALBUMIN 2.6 g/dL (3.4-5.0); CALCIUM 9.2 mg/dL (8.5-10.1); CARBON DIOXIDE 24.1 mmol/L (21-32); CREATININE 0.8 mg/dL (0.6-1.3); POTASSIUM 4.1 mmol/L (3.5-5.1); TOTAL BILIRUBIN 0.2 mg/dL (0.0-1.0); TOTAL PROTEIN, SERUM 7.6 g/dL (6.4-8.2)
[2017-02-03 01:55] LABS: WHITE BLOOD COUNT (AUTO) 39.7 K/uL (4.8-10.8)
[2017-02-03 01:57] LABS: BAND % (MANUAL) 6 % (0-8); EOSINOPHILS % (MANUAL) 0 % (0-4); LYMPHOCYTES % (MANUAL) 0 % (20-46); MONOCYTES % (MANUAL) 1 % (5-12); NEUTROPHILS % (MANUAL) 93 (43-65)
[2017-02-03 02:07] LABS: INR 1.1 (0.8-1.2); PARTIAL THROMBOPLASTIN TIME 27.2 secs (22-35.6)
--- NOTE | 2017-02-03 03:00 | NUR ---
Patient appears to be resting comfortably in bed. Vital Signs within normal limits. Respirations even and unlabored.
[2017-02-03 03:16] LABS: LACTIC ACID 2.1 mmol/L (0.4-2.0)
[2017-02-03 03:24] LABS: BLOOD GAS PH 7.451 (7.35-7.45)
[2017-02-03 03:25] LABS: BLOOD GAS BASE EXCESS -0.2 mmol/L (-2.0-2.0); BLOOD GAS HCO3 23.2 mmol/L; BLOOD GAS PCO2 34.1 mmHg (20-50); BLOOD GAS PO2 73.5 mmHg
[2017-02-03] MEDS ORDERED: LORazepam 1 MG TAB PO ONE (03:55)
[2017-02-03 03:56] LABS: APPEARANCE,URINE CLEAR (CLEAR); BILIRUBIN,URINE NEGATIVE (NEGATIVE); BLOOD, URINE NEGATIVE (NEGATIVE); COLOR,URINE YELLOW (YELLOW); LEUKOCYTE ESTERASE ,URINE NEGATIVE (NEGATIVE); NITRITE, URINE NEGATIVE (NEGATIVE); PH,URINE 6.5 (5.0-9.0); PROTEIN,URINE 3+ (NEGATIVE); UGLUCOSE NEGATIVE (NEGATIVE); UROBILINOGEN,URINE 0.2 EU/dL (0.2 - 1)
[2017-02-03 04:26] LABS: BACTERIA,URINE OCCASSIONAL /HPF (None Seen); MUCUS,URINE 1+ /LPF (None Seen); RBC,URINE 0-5 (RARE) /HPF (0-5); SQUAMOUS EPITHELIAL CELL,UR 0-3 (FEW) /LPF (0-3 (FEW)); WBC,URINE 0-5 (RARE) /HPF (0-5)
--- NOTE | 2017-02-03 04:50 | NUR ---
Patient appears to be resting comfortably in bed. Vital Signs within normal limits. Respirations even and unlabored.
--- NOTE | 2017-02-03 05:58 | NUR ---
Patient appears to be resting comfortably in bed. Vital Signs within normal limits. Respirations even and unlabored.
[2017-02-03] MEDS ORDERED: NACL 0.9% 1,000 ML IV ONE (06:15)
--- NOTE | 2017-02-03 07:03 | NUR ---
Patient appears to be resting comfortably in bed. Vital Signs within normal limits. Respirations even and unlabored.
--- NOTE | 2017-02-03 07:08 | NUR ---
REPORT GIVEN TO ABISAI HANNA. PT. RESTING IN BED, NO S/SX OF DISTRESS AT THIS TIME.
--- NOTE | 2017-02-03 08:21 | NUR ---
PATIENT STATED HE IS TAKING SAME MEDS ON PROFILE. PATIENT ALSO STATED HE IS TAKING CHEMO. MEDS.UNKNOWN
--- NOTE | 2017-02-03 08:50 | NUR ---
RN UNAVAILABLE FOR REPORT AT THIS TIME, WILL CALL BACK IN 15MIN
--- NOTE | 2017-02-03 09:05 | NUR ---
Patient will be admitted to care of DR HEWITT. Admited to TELE. Will go to room 124B. Belongings list completed. Report to ABISAI NOLASCO.
--- NOTE | 2017-02-03 09:06 | NUR ---
Patient being transfered to TELE via gurney per EMT/RN.
[2017-02-03 09:15] VITALS: BP 161/111
--- NOTE | 2017-02-03 09:15 | NUR ---
RECEIVED PATIENT FROM ER. PATIENT AWAKE, ALERT, ORIENTED AND AMBULATORY. PATIENT C/O OF THROAT PAIN. PATIENT ON 2L O2. O2 SATURATION AT 97%. SKIN IS INTACT. IV LINES NOTED TO THE RIGHT FOREARM AND AND RIGHT AC. PATIENT PLACED ON TELE MONITORING. BED LOWERED WITH CALL LIGHT WITHIN REACH. WILL CONTINUE TO MONITOR
--- NOTE | 2017-02-03 10:20 | NUR ---
MADE DR HEWITT AWARE OF PATIENT'S LACTIC ACID LEVEL OF 3.2 AND BP OF 161/111. TO PUT ORDERS
[2017-02-03] MEDS ORDERED: DEXTROSE 50% 50 ML SYR IVP PRN (10:25)
[2017-02-03] MEDS ORDERED: DIAZEPAM 2 MG TAB PO PRN (10:25)
[2017-02-03] MEDS ORDERED: INSULIN LISPRO SLIDING SCALE 100 UNITS/ML VIAL SUBQ PRN (10:25)
[2017-02-03] MEDS ORDERED: LEVALBUTEROL TARTRATE 0.045 MG IH PRN (10:25)
[2017-02-03] MEDS: NACL 0.9% 1,000 ML IV SCH ×2 (10:26→15:16)
[2017-02-03] MEDS ORDERED: ONDANSETRON 4 MG/2 ML VIAL IVP PRN (10:30)
[2017-02-03] MEDS ORDERED: LABETALOL 100 MG/20 ML VIAL IVP PRN (10:30)
[2017-02-03] MEDS ORDERED: MORPHINE SULFATE 4 MG/ML SYR IVP PRN (10:30)
[2017-02-03] MEDS ORDERED: ALBUTEROL 0.083% 2.5 MG/3 ML NEBU INH PRN (11:10)
[2017-02-03] MEDS: PIPER/TAZO 3.375GM/D5W PREMIX 50 ML IV SCH ×3 (11:54→23:04)
[2017-02-03 12:00] VITALS: BP 163/102
[2017-02-03] MEDS ORDERED: PIPERACILLIN/TAZOBACTAM 3.375 GM in DEXTROSE 5% 50 ML IV SCH (12:00)
[2017-02-03] MEDS: BLOOD GLUCOSE MONITORING 1 DEV DEV FS SCH ×3 (12:03→21:12)
--- NOTE | 2017-02-03 14:18 | NUR ---
PATIENT SEEN BY DR HEWITT
[2017-02-03] MEDS: ALBUTEROL 0.083% 2.5 MG/3 ML NEBU INH SCH ×3 (14:39→23:15)
--- NOTE | 2017-02-03 15:59 | NUR ---
PATIENT SEEN BY DR ZUNIGA
[2017-02-03 16:00] VITALS: BP 142/96
[2017-02-03] MEDS: metFORMIN 500 MG TAB PO SCH (16:16)
[2017-02-03] MEDS: LORazepam 2 MG/ML VIAL IM/IVP PRN (16:17)
--- NOTE | 2017-02-03 19:25 | NUR ---
RECEIVED REPORT FROM ABISAI LATHAM AT BEDSIDE. INITIAL ASSESSMENT COMPLETED. PT AAOX4. PT ON 02 2L NC. PT STABLE, PT'S SKIN IS INTACT. ORIENTED PT TO ROOM AND SURROUNDINGS AND USE OF CALL LIGHT. EXPLAINED PLAN OF CARE TO PT AND HE VERBALIZES UNDERSTANDING. CALL LIGHT WITHIN REACH, WILL CONTINUE TO MONITOR PT.
--- NOTE | 2017-02-03 19:39 | NUR ---
PATIENT REPORT GIVEN AT BEDSIDE. PATIENT ENDORSED IN STABLE CONDITION
[2017-02-03 20:00] VITALS: BP 148/102
[2017-02-03] MEDS: guaiFENesin 600 MG TABER PO SCH (21:10)
--- NOTE | 2017-02-03 21:12 | NUR ---
PT TOLERATED 2100 MED WELL. CALL LIGHT WITHIN REACH.
--- NOTE | 2017-02-03 22:28 | NUR ---
PT COMPLAINING OF PAIN 02/02. VS STABLE, WILL MEDICATE ORDERED.
[2017-02-03] MEDS: MORPHINE SULFATE 2 MG/ML SYR IVP PRN (22:34)
--- NOTE | 2017-02-03 23:30 | NUR ---
SPUTUM COLLECTED AND SENT TO LAB.
[2017-02-04] VITALS: BP 142/100
--- NOTE | 2017-02-04 00:20 | NUR ---
PT ACCIDENTALLY PULLED OUT HIS IV. NEW IV STARTED ON RIGHT HAND G 22. PT TOLERATED IT WELL. WILL CONTINUE TO MONITOR PT.
[2017-02-04] MEDS: LORazepam 2 MG/ML VIAL IM/IVP PRN ×2 (02:21→09:24)
--- NOTE | 2017-02-04 02:23 | NUR ---
PT AGITATED, STATES THAT HE NEEDS SOMETHING TO RELAX HIM. VS STABLE, WILL GIVE ATIVAN.
[2017-02-04] MEDS: ALBUTEROL 0.083% 2.5 MG/3 ML NEBU INH SCH ×5 (03:23→19:50)
[2017-02-04 04:00] VITALS: BP 145/105
--- NOTE | 2017-02-04 04:33 | NUR ---
PT REMOVES OXYGEN; PT INSTRUCTED/EDUCATED ON THE IMPORTANCE TO KEEP OXYGEN ON. WILL CONTINUE TO MONITOR PT.
[2017-02-04] MEDS: PIPER/TAZO 3.375GM/D5W PREMIX 50 ML IV SCH ×4 (05:42→23:45)
[2017-02-04] MEDS: NACL 0.9% 1,000 ML IV SCH ×2 (05:43→16:26)
[2017-02-04 05:54] LABS: HEMATOCRIT 38.7 % (36-52); HEMOGLOBIN 12.5 g/dL (12.0-18.0); MEAN CORPUSCULAR HEMOGLOBIN 27 pg (27-31); MEAN CORPUSCULAR HGB CONC 32 g/dL (33-37); MEAN CORPUSCULAR VOLUME 82 fL (80-94); PLATELET COUNT (AUTO) 523 K/uL (140-450); RED CELL DISTRIBUTION WIDTH 14.8 % (11.6-13.7)
[2017-02-04 06:21] LABS: ANION GAP 11.3 (8-16); CARBON DIOXIDE 27.8 mmol/L (21-32); CREATININE 0.7 mg/dL (0.6-1.3); POTASSIUM 4.1 mmol/L (3.5-5.1)
[2017-02-04] MEDS: BLOOD GLUCOSE MONITORING 1 DEV DEV FS SCH ×4 (06:23→21:09)
[2017-02-04 06:27] LABS: MAGNESIUM 1.7 mg/dL (1.8-2.4); PHOSPHORUS 3.5 mg/dL (2.5-4.9)
--- NOTE | 2017-02-04 06:41 | NUR ---
PT KEEPS GETTING OUT OF BED STATING THAT HE IS GOING HOME. PT ALSO KEEPS REMOVING HEART MONITOR. WILL CONTINUE TO MONITOR PT.
[2017-02-04 07:03] LABS: WHITE BLOOD COUNT (AUTO) 36.2 K/uL (4.8-10.8)
[2017-02-04 07:04] LABS: BAND % (MANUAL) 5 % (0-8); LYMPHOCYTES % (MANUAL) 3 % (20-46); MONOCYTES % (MANUAL) 2 % (5-12); NEUTROPHILS % (MANUAL) 90 (43-65)
--- NOTE | 2017-02-04 07:32 | NUR ---
ENDORSED PLAN OF CARE TO DAY SHIFT NURSE. PT IN STABLE CONDITION. PT RECEIVING BREATHING TREATMENT AT THIS TIME.
--- NOTE | 2017-02-04 07:33 | NUR ---
PT AWAKE AND ALERT, NO SIGNS OF ACUTE DISTRESS. BREATHING EVEN AND UNLABORED BILATERALLY. SKIN INTACT, BOWEL SOUNDS ACTIVE IN ALL 4 QUADRANTS, NO COMPLAINT OF PAIN AT THIS TIME. BOWEL AND BLADDER CONTINENCE, AMBULATORY WITH CANE WITH FALL RISK FOR UNSTEADY GAIT, IV PATENT WITH NO REDNESS OR SWELLING AROUND INSERTION SITE. BED IN LOW POSITION WITH BILATERAL HALF SIDE RAILS UP, CALL LIGHT WITHIN REACH.
[2017-02-04 08:00] VITALS: BP 132/86
--- NOTE | 2017-02-04 09:20 | NUR ---
PT PULLING ON SHEETS, IV, GOWN AND TRYING TO GET OUT OF BED. WILL ADMINISTER ATIVAN FOR ANXIETY AND CONTINUE TO MONITOR.
[2017-02-04] MEDS: ASPIRIN 81 MG TAB.CHEW PO SCH (09:21)
[2017-02-04] MEDS: ENOXAPARIN 40 MG/0.4 ML SYR SUBQ SCH (09:22)
[2017-02-04] MEDS: BISACODYL 5 MG TABEC PO SCH (09:23)
[2017-02-04] MEDS: MEGESTROL 40 MG TAB PO SCH (09:23)
[2017-02-04] MEDS: METOPROLOL 25 MG TAB PO SCH (09:23)
[2017-02-04] MEDS: SENNA 8.6 MG TAB PO SCH (09:23)
[2017-02-04] MEDS: metFORMIN 500 MG TAB PO SCH ×2 (09:23→17:00)
[2017-02-04] MEDS: FOLIC ACID 1 MG TAB PO SCH (09:23)
[2017-02-04] MEDS: guaiFENesin 600 MG TABER PO SCH ×2 (09:24→21:13)
[2017-02-04] MEDS: glipiZIDE 5 MG TAB PO SCH (09:24)
[2017-02-04] MEDS: LACTULOSE 20 GM/30 ML UDC PO SCH (09:25)
--- NOTE | 2017-02-04 09:58 | NUR ---
PATIENT HAS BEEN SCREENED AND CATEGORIZED HIGH NUTRITION RISK. PATIENT WILL BE SEEN WITHIN 1-2 DAYS OF ADMISSION. 02/03/17-02/04/[address]
--- NOTE | 2017-02-04 11:26 | NUR ---
FAXED INITIAL REVIEW TO [facility] [phone] PHONE JANUARY [phone]
[2017-02-04 12:00] VITALS: BP 130/84
--- NOTE | 2017-02-04 12:16 | NUR ---
02/04/17 RD INITIAL ASSESSMENT COMPLETED PLEASE REFER TO NUTRITION ASSESSMENT UNDER CARE ACTIVITY FOR ESTIMATED NUTRITIONAL NEEDS. 1. WHEN MEDICALLY FEASIBLE, RESUME PO DIET: 75 G CONSISTENT CARBOHYDRATE WITH TEXTURE PER ST RECOMMENDATIONS 2. RD TO FOLLOW-UP 2-3 DAYS; HIGH RISK CHRISTINE DICKINSON, EFRAIN
--- NOTE | 2017-02-04 14:00 | NUR ---
PT LEFT UNIT WITH KELSEY FROM RADIOLOGY FOR BARIUM SWALLOW EVAL. PT AWAKE AND ALERT, NO SIGNS OF ACUTE DISTRESS.
--- NOTE | 2017-02-04 14:59 | NUR ---
PT BACK FROM BARIUM SWALLOW STUDY, AWAKE AND ALERT, NO SIGNS OF ACUTE DISTRESS, WILL CONTINUE TO MONITOR.
[2017-02-04 16:00] VITALS: BP 135/88
--- NOTE | 2017-02-04 17:00 | NUR ---
PATIENT PULLED OUT IV, WILL RE-START NEW IV AND CONTINUE ANTIBIOTICS.
--- NOTE | 2017-02-04 18:00 | NUR ---
RECEIVED TRANSFER ORDER TO [facility] FOR PALLIATIVE CARE, NOTED.
--- NOTE | 2017-02-04 19:10 | NUR ---
PAGED DR HIGGINS REGARDING CHANGING DIET BACK TO [facility] AFTER BARIUM SWALLOW STUDY.
--- NOTE | 2017-02-04 19:20 | NUR ---
RE-STARTED IV IN LEFT HAND 22 JUANI AND STARTED ANTIBIOTICS, PT AWAKE AND ALERT, NO SIGNS OF ACUTE DISTRESS. ENDORSED TO THREAD SPINNER NURSE FOR CONTINUITY OF CARE.
--- NOTE | 2017-02-04 19:30 | NUR ---
RECEIVED REPORT FROM AM NURSE. PT'S AT BEDSIDE. PT AWAKE AND ALERT, RESTING IN BED, ABLE TO VERBALIZE NEEDS. SKIFF OPERATOR IN PLACE. PT REFUSING O2 NC, O2 SAT 95% AT ROOM AIR. PT DENIES CP, SOB OR S/S OF ACUTE DISTRESS. DISCUSSED AND REVIEWED PLAN OF CARE WITH PT AND PT'S . PT VERBALIZES UNDERSTANDING. IV ACCESS ASYMPTOMATIC, PATENT AND INTACT. IVF INFUSING WELL. SAFETY MEASURES ENSURED. CALL LIGHT WITHIN REACH. WILL CONTINUE TO MONITOR.
--- NOTE | 2017-02-04 19:53 | NUR ---
PAGEJohnny HIGGINS, MADE MD AWARE OF PT'S NPO STATUS AND THAT PT ALREADY FINISHED XR ESOPHAGRAM PROCEDURE. ORDERS TO PUT BACK PT TO PT'S PREVIOUS DIET, [id number]. PROVIDED WATER AND SANDWICH TO PT. PT TOLERATED WELL.
[2017-02-04 20:00] VITALS: BP 139/91
--- NOTE | 2017-02-04 21:13 | NUR ---
ADMINISTERED MEDICATION WITH EDUCATION. PT VERBALIZED UNDERSTANDING, TOLERATED MED WELL. IVF INFUSING WELL. ATTEMPTED TO COLLECT SPUTUM SAMPLE, PT EXPECTORATED SALIVA WITHOUT SPUTUM. PT PROVIDED WITH NEW SPUTUM COLLECTION CONTAINER AND INSTRUCTED TO COLLECT SPUTUM WHEN HE FEELS PHLEGM IN HIS THROAT. PT NODS HIS HEAD.
--- NOTE | 2017-02-04 22:43 | NUR ---
PT C/O PAIN. SEE PAIN ASSESSMENT. PT REQUESTING TYLENOL. PAGED DR HIGGINS. MADE AWARE OF PT'S PAIN. ORDERS RECEIVED FOR TYLENOL 650MG Q4 PRN. WILL CARRY OUT.
[2017-02-04] MEDS ORDERED: ACETAMINOPHEN 325 MG TAB PO PRN (22:45)
--- NOTE | 2017-02-04 23:11 | NUR ---
PT C/O PAIN. SEE PAIN ASSESSMENT. ADMINISTERED TYLENOL ORDERED. PT TOLERATED WELL. ASSISTED PT TO RESTROOM, OBSERVED STEADY GAIT INDEPENDENTLY WITH STANDBY ASSIST. PT TOLERATED WELL. BED LINENS CHANGED AND MADE. PT ASSISTED TO BED, RESTING COMFORTABLY. SAFETY MEASURES ENSURED. CALL LIGHT WITHIN REACH.
[2017-02-05] VITALS: BP 139/89
[2017-02-05] MEDS: ALBUTEROL 0.083% 2.5 MG/3 ML NEBU INH SCH ×5 (00:08→14:53)
--- NOTE | 2017-02-05 00:16 | NUR ---
PT RESTING COMFORTABLY. RT IN FOR BREATHING TREATMENT. RT MADE AWARE OF UNCOLLECTED SPUTUM SAMPLE. RT ASSISTED PT TO COLLECT SPUTUM SAMPLE. WILL SEND TO LAB. CONDITION STABLE. SAFETY MEASURES ENSURED. CALL LIGHT WITHIN REACH.
--- NOTE | 2017-02-05 00:20 | NUR ---
INFORMED ABISAI DAVISON THAT SPUTUM SAMPLE WAS OBTAINED. RN TO SAMPLE TO LAB.
--- NOTE | 2017-02-05 01:00 | NUR ---
CONDITION STABLE. ALL NEEDS MET. SAFETY MEASURES ENSURED. CALL LIGHT WITHIN REACH.
[2017-02-05] MEDS: MORPHINE SULFATE 2 MG/ML SYR IVP PRN ×2 (03:49→09:08)
[2017-02-05] MEDS: NACL 0.9% 1,000 ML IV SCH ×2 (03:49→12:26)
--- NOTE | 2017-02-05 03:49 | NUR ---
PREDATORY HUNTER REPORTS PT KEEPS TRYING TO STAND UP OUT OF BED. PT SLIGHTLY RESTLESS. PT C/O PAIN. SEE PAIN ASSESSMENT. ADMINISTERED MORPHINE ORDERED. PT TOLERATED WELL. WILL CONTINUE TO MONITOR.
[2017-02-05 04:00] VITALS: BP 147/94
[2017-02-05] MEDS: LORazepam 2 MG/ML VIAL IM/IVP PRN (04:35)
--- NOTE | 2017-02-05 04:35 | NUR ---
PT STILL RESTLESS. ADMINISTERED ATIVAN ORDERED. PT VERBALIZED UNDERSTANDING AND TOLERATED WELL. SAFETY MEASURES ENSURED. CALL LIGHT WITHIN REACH. WILL CONTINUE TO MONITOR.
[2017-02-05] MEDS: PIPER/TAZO 3.375GM/D5W PREMIX 50 ML IV SCH ×2 (05:56→11:40)
[2017-02-05 06:45] LABS: HEMATOCRIT 37.7 % (36-52); HEMOGLOBIN 12.5 g/dL (12.0-18.0); MEAN CORPUSCULAR HEMOGLOBIN 27 pg (27-31); MEAN CORPUSCULAR HGB CONC 33 g/dL (33-37); MEAN CORPUSCULAR VOLUME 82 fL (80-94); PLATELET COUNT (AUTO) 434 K/uL (140-450); RED BLOOD CELL COUNT(AUTO) 4.59 MIL/uL (4.20-6.10); RED CELL DISTRIBUTION WIDTH 14.7 % (11.6-13.7); WHITE BLOOD COUNT (AUTO) 28.9 K/uL (4.8-10.8)
[2017-02-05] MEDS: BLOOD GLUCOSE MONITORING 1 DEV DEV FS SCH ×2 (06:46→12:06)
[2017-02-05 06:58] LABS: ANION GAP 12.1 (8-16); CALCIUM 8.4 mg/dL (8.5-10.1); CARBON DIOXIDE 25.4 mmol/L (21-32); CREATININE 0.6 mg/dL (0.6-1.3); POTASSIUM 3.5 mmol/L (3.5-5.1)
[2017-02-05 07:10] LABS: MAGNESIUM 1.8 mg/dL (1.8-2.4); PHOSPHORUS 3.5 mg/dL (2.5-4.9)
--- NOTE | 2017-02-05 07:29 | NUR ---
PT UNABLE TO PRODUCE SPUTUM AT THIS TIME
--- NOTE | 2017-02-05 07:40 | NUR ---
CONDITION STABLE. ENDORSED PLAN OF CARE TO AM NURSE.
[2017-02-05 08:00] VITALS: BP 133/92
[2017-02-05 08:09] LABS: BAND % (MANUAL) 5 % (0-8); LYMPHOCYTES % (MANUAL) 5 % (20-46); MONOCYTES % (MANUAL) 2 % (5-12); NEUTROPHILS % (MANUAL) 88 (43-65)
--- NOTE | 2017-02-05 08:22 | NUR ---
RECEIVED ORDER FOR PATIENT TO BE TRANSFERED TO [facility] FOR PALLATIVE RADIATION. I PIZARRO [facility] AND SPOKE WITH CALEB IN ADMITTING AND SHE SAID THEY DID NOT HAVE THIS PATIENT ON A LIST FOR TRANSFER. SHE SAID TO FAX FACE SHEET AND ORDER TO HER AT [phone], WHICH I DID. I PUT A CALL IN TO DR. HEWITT TO SEE IF HE WAS GOING TO BE THE ADMITTING PHYSICIAN AND FOR HIM TO CALL [facility] . WAITING CALL BACK.
--- NOTE | 2017-02-05 08:32 | NUR ---
DR. HEWITT CALLED BACK AND HE SAID HE WOULD GET IN TOUCH WITH DR. MARTINEZ TO BE THE ADMITTING AT [facility] AND FOR HIM TO CALL THE HOSPITAL.
--- NOTE | 2017-02-05 08:45 | NUR ---
FAXED CONCURRENT REVIEW TO [facility] [phone] PHONE JANUARY [phone]. I SPOKE AGAIN WITH DR. HEWITT AND HE SAID THAT THE PATIENT WAS AWARE OF THE TRANSFER.
[2017-02-05] MEDS: LACTULOSE 20 GM/30 ML UDC PO SCH (09:06)
[2017-02-05] MEDS: MEGESTROL 40 MG TAB PO SCH (09:07)
[2017-02-05] MEDS: FOLIC ACID 1 MG TAB PO SCH (09:07)
[2017-02-05] MEDS: ASPIRIN 81 MG TAB.CHEW PO SCH (09:07)
[2017-02-05] MEDS: glipiZIDE 5 MG TAB PO SCH (09:07)
[2017-02-05] MEDS: metFORMIN 500 MG TAB PO SCH (09:07)
[2017-02-05] MEDS: guaiFENesin 600 MG TABER PO SCH (09:08)
[2017-02-05] MEDS: BISACODYL 5 MG TABEC PO SCH (09:08)
[2017-02-05] MEDS: METOPROLOL 25 MG TAB PO SCH (09:08)
[2017-02-05] MEDS: SENNA 8.6 MG TAB PO SCH (09:08)
[2017-02-05] MEDS: ENOXAPARIN 40 MG/0.4 ML SYR SUBQ SCH (09:17)
--- NOTE | 2017-02-05 10:54 | NUR ---
RECEIVED A CALL FROM JANUARY FROM [facility] THE AUTH FOR [facility] IS [id number]. THE AUTH FOR [facility] TRANSPORT IS [id number]. I CALLED [facility] AND SPOKE WITH NILES AND GAVE HIM THE AUTH AND THE PHONE NUMBER FOR JANUARY AT [facility]. HE SAID HE WILL CALL WHEN HE GETS A BED.
[2017-02-05 12:00] VITALS: BP 130/92
--- NOTE | 2017-02-05 12:16 | NUR ---
THIS P.T./ MYRANDA SPOKE WITH CHARGE NURSE AND MARCELLE RN, TO PT, RE: SWALLOW EVAL ORDER. PER ST MARCELLE EVAL ORDER WAS PLACED LAST NIGHT FOR BARIUM SWALLOW, PROCEDURE WAS ALREADY DONE LAST NIGHT AND PER RESULTS, MD RECOMMENDED CCHO DIET. PER NURSE PT ALREADY EATING AND DOES NOT PRESENT WITH COUGHING OR ASPIRATION SIGNS. PER CHARGE NURSE, WILL CLARIFY WITH MD IF HE STILL WANTS SWALLOW EVAL DONE SINCE PT ALREADY HAVE PO DIET WITH NO SIGNS OF ASPIRATION RISKS. ALSO PER HUDDLE PT POSSIBLE TRANSFER TO ANOTHER HOSPITAL FOR FURTHER CARE. WILL FOLLOW UP WITH [facility] FOR FURTHER ST NEEDS. PVEX1
[2017-02-05] MEDS ORDERED: methylPREDNISolone SS 40 MG/ML VIAL IVP SCH (13:37)
--- NOTE | 2017-02-05 13:39 | NUR ---
RECEIVED TRANSFER ORDER TO [place], GETTERING FILAMENT MACHINE OPERATOR APPROXIMATELY 1500. NOTED, WILL CARRY OUT.
--- NOTE | 2017-02-05 13:41 | NUR ---
RECEIVED A CALL FROM NILES AT [facility]. THE PATIENT WILL GO TO MED SURG BED ROOM 428 CALL REPORT [place] [phone] MARTINEZ. SET UP [facility] TRANSPORT FOR 3P.M.. SHWETHA BARONETIER OVER NURSE AWARE.
--- NOTE | 2017-02-05 15:15 | NUR ---
PT AWAKE AND ALERT, NO SIGNS OF ACUTE DISTRESS. EXPLAINED TRANSFER DISCHARGE INSTRUCTIONS TO PATIENT, PATIENT VERBALIZED UNDERSTANDING. CALLED PATIENT SPOUSE, SANAM KOENIG AT [phone] TO INFORM HER OF TRANSFER TODAY AT 1500 TO ROOM 428. SPOUSE WILL GO TO [facility] AFTER WORK. CUT OFF WRIST BANDS AND TOOK OFF TELE MONITOR. PT TRANSFERRED VIA AMBULANCE TO [facility]. LEFT IV IN LEFT HAND 22G.
[2017-02-06] MEDS ORDERED: methylPREDNISolone SS 40 MG/ML VIAL IVP SCH (09:00)
== END 2017-02-05 15:15 | disposition short-term general hospital (02) | DRG 720 ==
LOC: MED 00:49 → MTU 08:19
PROVIDERS: ADMIT Internal Medicine Pulmonary Disease; ATTEND Internal Medicine Pulmonary Disease
DX: A41.9 Sepsis, unspecified organism (principal); J69.0 Pneumonitis due to inhalation of food and vomit; C45.0 Mesothelioma of pleura; E87.1 Hypo-osmolality and hyponatremia; I10 Essential (primary) hypertension; D47.3 Essential (hemorrhagic) thrombocythemia; E11.9 Type 2 diabetes mellitus without complications; Z77.090 Contact with and (suspected) exposure to asbestos; F41.9 Anxiety disorder, unspecified; E78.00 Pure hypercholesterolemia, unspecified; Z79.82 Long term (current) use of aspirin; Z79.891 Long term (current) use of opiate analgesic; Z79.899 Other long term (current) drug therapy
CPT/HCPCS: 36415; 36600; 71010; 71275; 74220; 80048; 80053; 81001; 82803; 82948; 83036; 83605; 83735; 83880; 84100; 84484; 85025; 85379; 85610; 85730; 87040; 87070; 87081; 87205; 93005; 93970; 94640; 97799; 99285; J1650; J1815; J2060; J2270; J2405; J2543; J3490; J7030; J7613; J7620; Q0092; Q9967

== ENCOUNTER 2017-04-08 22:22 | Emergency (ER) | payer OTHER ==
[~2017-04-08] VITALS: Ht 167.6 cm; Wt 73.9 kg
[~2017-04-08 22:22] MED LIST changes: -MORP10SO PO
[2017-04-08 22:27] VITALS: BP 138/96
--- NOTE | 2017-04-08 22:35 | NUR ---
Patient ambulated to bed 07.
--- NOTE | 2017-04-08 22:46 | NUR ---
Dr. Ashley evaluating patient at bedside.
--- NOTE | 2017-04-08 22:48 | NUR ---
56 Y/O M BIB W/C/O CONSTIPATION X 8 DAYS. 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 PT DENIES ANY VOMITING BUT STATES TO FEEL NAUSEATED. PT ON MORPHINE FOR PAIN AT HOME. NO S/S ABD DISTENTION NOTED, ER MD MADE AWARE.
[2017-04-08] MEDS ORDERED: SODIUM PHOSPHATE 118 ML ENEM RC ONE (22:50)
--- NOTE | 2017-04-08 23:08 | NUR ---
ENEMA DONE AT BEDSIDE PT TOLERATED WELL.
[2017-04-08 23:13] LABS: APPEARANCE,URINE CLEAR (CLEAR); BILIRUBIN,URINE NEGATIVE (NEGATIVE); BLOOD, URINE TRACE-I (NEGATIVE); COLOR,URINE YELLOW (YELLOW); LEUKOCYTE ESTERASE ,URINE NEGATIVE (NEGATIVE); NITRITE, URINE NEGATIVE (NEGATIVE); PH,URINE 6.5 (5.0-9.0); PROTEIN,URINE 2+ (NEGATIVE); UGLUCOSE NEGATIVE (NEGATIVE); UROBILINOGEN,URINE 0.2 EU/dL (0.2 - 1)
--- NOTE | 2017-04-08 23:19 | NUR ---
Patient being taken to CT via wheelchair per tech.
[2017-04-08 23:20] LABS: BASOPHILS % (AUTO) 0.6 % (0.0-2.0); EOSINOPHILS # (AUTO) 0.2 K/uL (0-0.4); EOSINOPHILS % (AUTO) 2.6 % (0.0-4.0); HEMATOCRIT 29.6 % (36-52); HEMOGLOBIN 9.6 g/dL (12.0-18.0); LYMPHOCYTES # (AUTO) 0.7 K/uL (2.0-11.5); MEAN CORPUSCULAR HEMOGLOBIN 27 pg (27-31); MEAN CORPUSCULAR HGB CONC 32 g/dL (33-37); MEAN CORPUSCULAR VOLUME 84 fL (80-94); MONOCYTES # (AUTO) 0.7 K/uL (0.8-1.0); MONOCYTES % (AUTO) 9.4 % (1.7-9.3); NEUTROPHILS # (AUTO) 5.9 K/uL (1.8-7.7); NEUTROPHILS % (AUTO) 78.2 % (42.2-75.2); RED BLOOD CELL COUNT(AUTO) 3.52 MIL/uL (4.20-6.10); RED CELL DISTRIBUTION WIDTH 17.5 % (11.6-13.7); WHITE BLOOD COUNT (AUTO) 7.5 K/uL (4.8-10.8)
[2017-04-08 23:29] LABS: ALBUMIN 2.8 g/dL (3.4-5.0); ANION GAP 9.1 (8-16); CALCIUM 9.6 mg/dL (8.5-10.1); CARBON DIOXIDE 29.8 mmol/L (21-32); CREATININE 0.6 mg/dL (0.7-1.3); POTASSIUM 3.9 mmol/L (3.5-5.1); TOTAL BILIRUBIN 0.2 mg/dL (0.0-1.0); TOTAL PROTEIN, SERUM 7.9 g/dL (6.4-8.2)
--- NOTE | 2017-04-08 23:29 | NUR ---
Patient back from CT via wheelchair per tech.
[2017-04-08 23:45] LABS: LYMPHOCYTES % (AUTO) 9.2 % (20.5-51.1)
[2017-04-08 23:46] LABS: PLATELET COUNT (AUTO) 609 K/uL (140-450)
[2017-04-09 00:10] LABS: BACTERIA,URINE None Seen /HPF (None Seen); MUCUS,URINE 3+ /LPF (None Seen); RBC,URINE 0-5 (RARE) /HPF (0-5); SQUAMOUS EPITHELIAL CELL,UR 0-3 (FEW) /LPF (0-3 (FEW)); WBC,URINE 0-5 (RARE) /HPF (0-5)
--- NOTE | 2017-04-09 00:16 | NUR ---
PT RESTING IN BED, VSS, NO S/S OF DISTRESS NOTED AT THE MOMENT.
[2017-04-09 01:02] VITALS: BP 119/82
--- NOTE | 2017-04-09 01:02 | NUR ---
Patient discharged with v/s stable. Written and verbal after care instructions given and explained. Patient alert, oriented and verbalized understanding of instructions. Ambulatory with steady gait. All questions addressed prior to discharge. ID band removed. Patient advised to follow up with PMD IN 2-3 DAYS OR RETURN BACK TO ER IF CONDITION WORSENS. Rx of MIRALAX given. Patient educated on indication of medication including possible reaction and side effects. Opportunity to ask questions provided and answered.
== END 2017-04-09 01:02 | disposition home or self-care (01) ==
LOC: MED 22:22
DX: C45.1 Mesothelioma of peritoneum (principal); C79.9 Secondary malignant neoplasm of unspecified site; K59.00 Constipation, unspecified; D64.9 Anemia, unspecified; E11.9 Type 2 diabetes mellitus without complications; I10 Essential (primary) hypertension
CPT/HCPCS: 36415; 80053; 81001; 83605; 83690; 85025; 99285

== ENCOUNTER 2017-04-16 03:10 | Emergency (ER) | payer OTHER ==
[~2017-04-16] VITALS: Ht 165.1 cm; Wt 75.0 kg
[2017-04-16 03:20] VITALS: BP 154/80
--- NOTE | 2017-04-16 03:26 | NUR ---
PT TAKEN TO BED 4
[2017-04-16] MEDS ORDERED: LORA-476 PO (03:48)
[2017-04-16] MEDS ORDERED: FENT100T TD (03:48)
[2017-04-16] MEDS ORDERED: [UNRECOGNIZED DRUG - OTHER] GT/PO (03:48)
--- NOTE | 2017-04-16 03:49 | NUR ---
Dr. Dangelo evaluating patient at bedside.
[2017-04-16] MEDS ORDERED: VENL37.55 PO (03:50)
--- NOTE | 2017-04-16 03:50 | NUR ---
PATIENT PRESENTS TO ED WITH C/O ANXIETY. PT TAKES ATIVAN AND MORPHINE AT HOME AND HAS FENTANYL PATCH 50MCQ ON LEFT CHEST. 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 PT HAS NAUSEA, DENIES DIARRHEA; SKIN IS PINK/WARM/DRY; AAOX4 WITH EVEN AND STEADY GAIT; LUNGS CLEAR BL; HR EVEN AND REGULAR; PT DENIES ANY FEVER, CP, SOB, OR COUGH AT THIS TIME; PATIENT STATES PAIN OF 10/10 AT THIS TIME; VSS; PATIENT POSITIONED FOR COMFORT; HOB ELEVATED; BEDRAILS UP X2; BED DOWN. ER MD MADE AWARE OF PT STATUS.
[2017-04-16] MEDS ORDERED: LORazepam 2 MG/ML VIAL IVP ONE (04:00)
[2017-04-16] MEDS ORDERED: NACL 0.9% 1,000 ML IV ONE (04:00)
--- NOTE | 2017-04-16 04:00 | NUR ---
PT IS CURRENTLY ON CHEMOTHERAPY TREATMENT PLAN: CARBOPLATIN, ALIMTA AND AVASTIN.
--- NOTE | 2017-04-16 04:15 | NUR ---
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 PT TAKES PO'S VIA HIS GTT.
[2017-04-16 04:38] LABS: ANION GAP 11.5 (8-16); CARBON DIOXIDE 27.3 mmol/L (21-32); CREATININE 0.6 mg/dL (0.7-1.3); POTASSIUM 3.8 mmol/L (3.5-5.1)
[2017-04-16 05:06] VITALS: BP 136/77
--- NOTE | 2017-04-16 05:12 | NUR ---
Patient discharged with v/s stable. Written and verbal after care instructions given and explained. Patient alert, oriented and verbalized understanding of instructions. Ambulatory with steady gait. All questions addressed prior to discharge. ID band removed. Patient advised to follow up with PMD. Rx of ATIVAN 1MG TID/PRN given. Patient educated on indication of medication including possible reaction and side effects. Opportunity to ask questions provided and answered.
== END 2017-04-16 05:12 | disposition home or self-care (01) ==
LOC: MED 03:10
DX: C45.7 Mesothelioma of other sites (principal); F41.9 Anxiety disorder, unspecified; E11.9 Type 2 diabetes mellitus without complications; I10 Essential (primary) hypertension
CPT/HCPCS: 36415; 80048; 96361; 96374; 99284; J2060; J7030

== ENCOUNTER 2017-04-30 02:05 | Inpatient (IN) | payer OTHER ==
[~2017-04-30] VITALS: Ht 167.6 cm; Wt 71.7 kg
[~2017-04-30 02:05] MED LIST changes: +FENT100T TD; +LORA-476 PO; +VENL37.55 PO
[2017-04-30 02:11] VITALS: BP 131/80
--- NOTE | 2017-04-30 02:20 | NUR ---
TO ER BED 5
--- NOTE | 2017-04-30 02:23 | NUR ---
Patient being evaluated by physician at bedside.
[2017-04-30] MEDS ORDERED: HYDROmorphone 1 MG/ML AMP IVP ONE ×2 (02:30→05:00)
[2017-04-30] MEDS ORDERED: NACL 0.9% 1,000 ML IV ONE (02:30)
[2017-04-30] MEDS ORDERED: ONDANSETRON 4 MG/2 ML VIAL IVP ONE (02:30)
[2017-04-30 02:45] LABS: BASOPHILS % (AUTO) 0.5 % (0.0-2.0); EOSINOPHILS # (AUTO) 0.2 K/uL (0-0.4); EOSINOPHILS % (AUTO) 2.3 % (0.0-4.0); HEMATOCRIT 29.7 % (36-52); HEMOGLOBIN 9.5 g/dL (12.0-18.0); LYMPHOCYTES # (AUTO) 0.7 K/uL (2.0-11.5); MEAN CORPUSCULAR HEMOGLOBIN 27 pg (27-31); MEAN CORPUSCULAR HGB CONC 32 g/dL (33-37); MEAN CORPUSCULAR VOLUME 84 fL (80-94); MONOCYTES # (AUTO) 0.4 K/uL (0.8-1.0); NEUTROPHILS # (AUTO) 7.8 K/uL (1.8-7.7); PLATELET COUNT (AUTO) 505 K/uL (140-450); RED BLOOD CELL COUNT(AUTO) 3.52 MIL/uL (4.20-6.10); RED CELL DISTRIBUTION WIDTH 19.1 % (11.6-13.7); WHITE BLOOD COUNT (AUTO) 9.1 K/uL (4.8-10.8)
--- NOTE | 2017-04-30 02:48 | NUR ---
blood sent to lab. rt 22ga hand. ivp meds given-nadr at this time
[2017-04-30 02:54] LABS: LYMPHOCYTES % (AUTO) 7.2 % (20.5-51.1)
[2017-04-30 02:57] LABS: ANION GAP 11.2 (8-16); CARBON DIOXIDE 30.2 mmol/L (21-32); CREATININE 0.7 mg/dL (0.7-1.3); POTASSIUM 4.4 mmol/L (3.5-5.1)
--- NOTE | 2017-04-30 03:00 | NUR ---
PATIENT PRESENTS TO ED WITH C/O ABD PAIN. PT TALKS WITH LOW VOICE DUE TO VOCAL CORD PARALYSIS. PT HAS METASTATIC CANCER. PT DENIES N/V/D; SKIN IS PINK/WARM/DRY; AAOX4 WITH EVEN AND STEADY GAIT WITH ASSIST OF CANE; LUNGS CLEAR BL; HR EVEN AND REGULAR; PT DENIES ANY FEVER, CP, SOB, OR COUGH AT THIS TIME; PATIENT STATES PAIN OF 7/10 AT THIS TIME; VSS; PATIENT POSITIONED FOR COMFORT; HOB ELEVATED; BEDRAILS UP X2; BED DOWN. ER MD MADE AWARE OF PT STATUS.
--- NOTE | 2017-04-30 03:00 | NUR ---
PT IS NOTED TO HAVE GTT. OF PT STATES HE HAS VOCAL CORD PARALYSIS AND IS TO HAVE PUREED FOOD ONLY AND HAS HAD A SPEECH EVAL.
[2017-04-30 03:03] LABS: ALBUMIN 2.9 g/dL (3.4-5.0); TOTAL BILIRUBIN 0.2 mg/dL (0.0-1.0)
[2017-04-30 04:33] LABS: APPEARANCE,URINE CLEAR (CLEAR); BILIRUBIN,URINE NEGATIVE (NEGATIVE); BLOOD, URINE NEGATIVE (NEGATIVE); COLOR,URINE YELLOW (YELLOW); LEUKOCYTE ESTERASE ,URINE NEGATIVE (NEGATIVE); NITRITE, URINE NEGATIVE (NEGATIVE); UGLUCOSE NEGATIVE (NEGATIVE)
[2017-04-30 04:43] LABS: RBC,URINE 0-5 (RARE) /HPF (0-5); WBC,URINE NONE SEEN /HPF (0-5)
[2017-04-30 04:44] LABS: HYALINE CASTS, URINE 0-3 /LPF (None Seen)
--- NOTE | 2017-04-30 05:00 | NUR ---
PT HAS RT CHEST PORT-A-CATH THAT IS NOT ACCESSED AT THIS TIME. PT WAS ON FENTANYL PATCH 50MCQ AT HOME THAT YESTERDAY. PT ALSO TAKES PO MORPHINE AT HOME FOR HIS PAIN MANAGEMENT DUE TO HIS METASTATIC CANCER. PT STATES PAIN NOT CONTROLLED AT HOME AT THIS TIME AND CAME INTO THE ED.
[2017-04-30] MEDS ORDERED: NACL 0.9% 1,000 ML IV SCH (05:21)
[2017-04-30] MEDS ORDERED: ONDANSETRON 4 MG/2 ML VIAL IVP PRN ×2 (05:25→06:15)
[2017-04-30] MEDS ORDERED: ACETAMINOPHEN 325 MG TAB PO PRN ×2 (05:25→06:15)
[2017-04-30] MEDS ORDERED: HYDROmorphone PFS 2 MG/ML SYR IVP PRN (05:25)
[2017-04-30] MEDS ORDERED: LORazepam 2 MG/ML VIAL IVP PRN (05:25)
[2017-04-30] MEDS ORDERED: HYDROcodone/APAP 5/325 MG 1 TAB TAB PO PRN ×2 (05:25→06:15)
--- NOTE | 2017-04-30 05:49 | NUR ---
CALLED [facility] TO GIVE REPORT, NICO BARONE WILL RETURN CALL FOR REPORT.
--- NOTE | 2017-04-30 05:52 | NUR ---
Patient will be admitted to care of DR LANE. Admited to MED SURG. Will go to room 111B. Belongings list completed. Report to ABISAI WALSH.
[2017-04-30] MEDS: NACL 0.9% 1,000 ML IV SCH ×2 (06:15→22:24)
--- NOTE | 2017-04-30 06:15 | NUR ---
RECEIVED PT FROM ER [facility] PT UZBEK SPEAKER AAOX4 AMBULATES WITH A CANE, PORT A CATH ON RT UPPER CHEST, HL ON RT HAND GAUGE # 22 .MRSA PROTOCOL SAMPLE TAKEN FROM [facility] TAKEN AND SENT TO [facility] LOWER LEG OPEN BLISTER, PT IS ORIENTED TOTHE FLOOR CALL LIGHT WITHIN REACH.
--- NOTE | 2017-04-30 06:20 | NUR ---
VITALS SIGNS TEMP 97.5 HR 101, BP 140 91 02 SAT 100%
--- NOTE | 2017-04-30 07:30 | NUR ---
PT IS ENDORSE TO MARCELLE BARONE FOR CONTINUITY OF CARE
--- NOTE | 2017-04-30 07:31 | NUR ---
RECEIVED BEDSIDE REPORT FROM DOCUMENTATION DESIGNER NURSE. PATIENT AWAKE AND ALERT, NO SIGNS OF ACUTE DISTRESS. BOWEL SOUNDS ACTIVE IN ALL 4 QUADRANTS. BOWEL AND BLADDER CONTINENCE. SKIN INTACT. PATIENT DENIES PAIN AT THIS TIME. IV PATENT AND ASYMPTOMATIC. PORT A CATH RIGHT UPPER CHEST, NOT IN USE. ORIENTED PATIENT TO HOSPITAL AND TO UNIT, PATIENT VERBALIZED UNDERSTANDING. BED IN LOW POSITION WITH BILATERAL HALF SIDE RAILS UP, CALL LIGHT WITHIN REACH. NO SIGNS OF ACUTE DISTRESS. WILL CONTINUE TO MONITOR. Addendum: 04/30/17 at 1734 by Deysi Ansari RN RECEIVED BEDSIDE REPORT FROM DOCUMENTATION DESIGNER NURSE. PATIENT AWAKE AND ALERT, NO SIGNS OF ACUTE DISTRESS. BOWEL SOUNDS ACTIVE IN ALL 4 QUADRANTS. BOWEL AND BLADDER CONTINENCE. G TUBE IN PLACE, NOT IN USE. SKIN INTACT. PATIENT DENIES PAIN AT THIS TIME. IV PATENT AND ASYMPTOMATIC. PORT A CATH RIGHT UPPER CHEST, NOT IN USE. ORIENTED PATIENT TO HOSPITAL AND TO UNIT, PATIENT VERBALIZED UNDERSTANDING. BED IN LOW POSITION WITH BILATERAL HALF SIDE RAILS UP, CALL LIGHT WITHIN REACH. NO SIGNS OF ACUTE DISTRESS. WILL CONTINUE TO MONITOR.
[2017-04-30 08:00] VITALS: BP 146/93
[2017-04-30] MEDS ORDERED: DEXTROSE 50% 50 ML SYR IVP PRN (08:35)
[2017-04-30] MEDS ORDERED: INSULIN LISPRO SLIDING SCALE 100 UNITS/ML VIAL SUBQ PRN (08:35)
[2017-04-30] MEDS ORDERED: ENOXAPARIN 40 MG/0.4 ML SYR SUBQ SCH (09:00)
[2017-04-30] MEDS ORDERED: BISACODYL 5 MG TABEC PO PRN (09:25)
[2017-04-30] MEDS ORDERED: ALBUTEROL 0.083% 2.5 MG/3 ML NEBU INH PRN (09:30)
--- NOTE | 2017-04-30 09:30 | NUR ---
PT RESTING COMFORTABLY IN BED, NO SIGNS OF ACUTE DISTRESS. BED IN LOW POSITION WITH BILATERAL HALF SIDE RAILS UP, CALL LIGHT WITHIN REACH. WILL CONTINUE TO MONITOR.
[2017-04-30] MEDS: ENOXAPARIN 40 MG/0.4 ML SYR SUBQ SCH (10:37)
[2017-04-30] MEDS: HYDROmorphone PFS 2 MG/ML SYR IVP PRN ×3 (10:38→19:58)
[2017-04-30] MEDS: LORazepam 2 MG/ML VIAL IVP PRN ×3 (10:39→22:24)
[2017-04-30] MEDS: BLOOD GLUCOSE MONITORING 1 DEV DEV FS SCH ×3 (11:30→21:20)
--- NOTE | 2017-04-30 11:38 | NUR ---
04/30/17 RD INITIAL ASSESSMENT COMPLETED PLEASE REFER TO NUTRITION ASSESSMENT UNDER CARE ACTIVITY FOR ESTIMATED NUTRITIONAL NEEDS. 1. IF PO FOR ORAL GRATIFICATION, CONSIDER ENTERAL NUTRITION SUPPORT - DIABETISOURCE AC TO START AT 30 ML/HR AND ADVANCE 10 ML Q8H TO A GOAL RATE OF 75 ML/HR (PROVIDES 2160 KCAL, 108 G PROTEIN - MEETS 100% ESTIMATED KCAL+PROTEIN NEEDS) 2. RD TO FOLLOW-UP 2-3 DAYS, HIGH RISK CHRISTINE DICKINSON RD
--- NOTE | 2017-04-30 11:59 | NUR ---
CM NOTE INITIAL REVIEW FAXED TO [facility] [phone] PH January [phone], LEW [phone] ORDER FOR PALLIATIVE CARE FAXED TO [facility] [phone] PH [phone] [address]T [phone]
[2017-04-30] MEDS ORDERED: fentaNYL 0.05 MG/HR PATCH TD SCH (12:00)
--- NOTE | 2017-04-30 12:00 | NUR ---
PT SITTING UPRIGHT, EATING LUNCH, NO SIGNS OF ACUTE DISTRESS. BED IN LOW POSITION WITH BILATERAL HALF SIDE RAILS UP, CALL LIGHT WITHIN REACH. WILL CONTINUE TO MONITOR.
[2017-04-30 16:00] VITALS: BP 140/91
--- NOTE | 2017-04-30 16:00 | NUR ---
PT SLEEPING, NO SIGNS OF ACUTE DISTRESS. BED IN LOW POSITION WITH BILATERAL HALF SIDE RAILS UP, CALL LIGHT WITHIN REACH. WILL CONTINUE TO MONITOR.
--- NOTE | 2017-04-30 19:15 | NUR ---
PT AWAKE AND ALERT, NO SIGNS OF ACUTE DISTRESS. ENDORSED TO PROCESSOR INSPECTOR NURSE FOR CONTINUITY OF CARE.
--- NOTE | 2017-04-30 19:20 | NUR ---
RECEIVED PT FROM ANGELLA RN PT PAPUA NEW GUINEAN SPEAKER AAOX4 AMBULATES WITH A CANE IV ON RT HAND INFUSING WELL,PORT CATH ON RT UPPER CHEST RELSTIVES AT BED SIDE INITIAL ASSESSMENT DONE
[2017-04-30] MEDS: VENLAFAXINE 37.5 MG TAB PO SCH (20:02)
--- NOTE | 2017-04-30 22:30 | NUR ---
AFTER PAIN MEDIC GIVEN DENIES ANY PAIN BUT COMPLAINT FOR ANXIOUS AND MEDIC GIVEN ORDER
[2017-05-01] VITALS: BP 148/88
--- NOTE | 2017-05-01 00:48 | NUR ---
PT SLEEPING DENIES ANY PAIN IV ON RT HAND INFUSING WELL
[2017-05-01] MEDS: MILD SOAP AND WATER TP SCH ×2 (01:00→13:00)
[2017-05-01] MEDS: HYDROmorphone PFS 2 MG/ML SYR IVP PRN ×3 (02:58→12:25)
--- NOTE | 2017-05-01 03:15 | NUR ---
PT SLEEPING WELL AFTER PAIN MEDIC GIVEN IV ON RT HAND INFUSING WELL
--- NOTE | 2017-05-01 05:00 | NUR ---
SPONGE BATH GIVEN LINEN CHANGED NOT DISTRESS NOTED REMAIN STABLE
[2017-05-01 05:58] LABS: BASOPHILS % (AUTO) 0.3 % (0.0-2.0); EOSINOPHILS # (AUTO) 0.2 K/uL (0-0.4); EOSINOPHILS % (AUTO) 2.6 % (0.0-4.0); HEMATOCRIT 27.9 % (36-52); HEMOGLOBIN 8.9 g/dL (12.0-18.0); LYMPHOCYTES # (AUTO) 0.7 K/uL (2.0-11.5); LYMPHOCYTES % (AUTO) 8.5 % (20.5-51.1); MEAN CORPUSCULAR HEMOGLOBIN 27 pg (27-31); MEAN CORPUSCULAR HGB CONC 32 g/dL (33-37); MEAN CORPUSCULAR VOLUME 84 fL (80-94); MONOCYTES # (AUTO) 0.6 K/uL (0.8-1.0); MONOCYTES % (AUTO) 7.9 % (1.7-9.3); NEUTROPHILS # (AUTO) 6.2 K/uL (1.8-7.7); NEUTROPHILS % (AUTO) 80.7 % (42.2-75.2); PLATELET COUNT (AUTO) 526 K/uL (140-450); RED BLOOD CELL COUNT(AUTO) 3.32 MIL/uL (4.20-6.10); RED CELL DISTRIBUTION WIDTH 19.2 % (11.6-13.7); WHITE BLOOD COUNT (AUTO) 7.7 K/uL (4.8-10.8)
[2017-05-01 06:35] LABS: ALBUMIN 2.6 g/dL (3.4-5.0); ANION GAP 11.5 (8-16); CARBON DIOXIDE 27.8 mmol/L (21-32); CREATININE 0.5 mg/dL (0.7-1.3); POTASSIUM 4.3 mmol/L (3.5-5.1); TOTAL BILIRUBIN 0.2 mg/dL (0.0-1.0)
[2017-05-01] MEDS: BLOOD GLUCOSE MONITORING 1 DEV DEV FS SCH ×3 (07:03→17:19)
--- NOTE | 2017-05-01 07:04 | NUR ---
BLOOD SUGAR TEST 80 PT SLEEPING WELL HE DOES NOT COMPLAINT OF ANY DISCOMFORT AT THIS TIME PT WILL BE ENDORSED TODAY SHIFT NURSE FOR CONTINUITY OF CARE
--- NOTE | 2017-05-01 07:10 | NUR ---
RECEIVED REPORT FROM NIGHT NURSE. PT IS AWAKE ALERT AND ORIENTED. IV ACCESS IS PATENT AND ASYMPTOMATIC. ON ROOM AIR. AMBULATORY WITH ASSISTIVE DEVICE, CANE AT BEDSIDE. PT SHOWING NO SIGNS OF ACUTE DISTRESS, BOWEL SOUNDS PRESENT ON ALL FOUR QUADRANTS, BOWEL AND BLADDER CONTINENCE. PLAN OF CARE DISCUSSED, PT VERBALIZED UNDERSTANDING. BED ON LOW POSITION, HALF SIDE RAILS UP, CALL LIGHT WITHIN REACH. WILL CONTINUE TO MONITOR.
[2017-05-01] MEDS: LORazepam 2 MG/ML VIAL IVP PRN ×2 (07:44→12:25)
[2017-05-01 08:00] VITALS: BP 146/97
[2017-05-01] MEDS ORDERED: SENNA 8.6 MG TAB PO SCH (09:00)
[2017-05-01] MEDS ORDERED: METOPROLOL 25 MG TAB PO SCH (09:00)
[2017-05-01] MEDS: VENLAFAXINE 37.5 MG TAB PO SCH (09:07)
[2017-05-01] MEDS: ENOXAPARIN 40 MG/0.4 ML SYR SUBQ SCH (09:09)
--- NOTE | 2017-05-01 10:10 | NUR ---
CM NOTE CONCURRENT REVIEW FAXED TO [facility] [phone] NIKA PATTON [phone], NIKA HACKETT [phone]
[2017-05-01] MEDS: NACL 0.9% 1,000 ML IV SCH (11:15)
--- NOTE | 2017-05-01 11:45 | NUR ---
CALLED PT'S SANAM KOENIG, TO MAKE HER AWARE OF DISCHARGE ORDER IN PLACE AND ADVISED HER PT IS READY TO GO HOME. INFORMED ME SHE WOULD BE THE ONE TO COMPOUNDING PHARMACY TECHNICIAN PT FROM THE HOSPITAL TODAY AT 6PM.
[2017-05-01 16:00] VITALS: BP 138/87
--- NOTE | 2017-05-01 16:45 | NUR ---
MADE ROUNDS, PT IS SLEEPING SHOWING NO SIGNS OF ACUTE DISTRESS. BED ON LOW POSITION, HALF SIDE RAILS UP. CALL LIGHT WITHIN REACH. WILL CONTINUE TO MONITOR.
--- NOTE | 2017-05-01 18:30 | NUR ---
PATIENT SPOUSE ARRIVED TO TAKE PATIENT HOME, DR LANE ORDERED TO DISCHARGE TODAY. PATIENT SIGNED DISCHARGE PAPERWORK. PATIENT STATED HE WAS ONLY MEDICATED WITH PAIN MEDICATION ONCE AND WOULD LIKE DILAUDID IV BEFORE HE GETS DISCHARGED. INFORMED PATIENT AND SPOUSE THAT HE WAS MEDICATED WITH PRN PAIN MEDICATION TWICE TODAY WITH ANXIETY MEDICATION WELL. ALSO INFORMED PATIENT THAT PER HOSPITAL POLICY WE ARE UNABLE TO MEDICATE WITH IV PRN PAIN MEDICATION UPON DISCHARGE, IT MUST BE A MINIMUM OF ONE HOUR BEFORE. PATIENT WAS ANGRY AND STATED THAT HE DID NOT WANT THE PAIN MEDICATION NOW AND HE JUST WANTS TO LEAVE RIGHT NOW. PATIENT PULLED HIS OWN IV OUT, TOOK HIS GOWN OFF AND PUT ON HIS CLOTHES. I CUT OFF PATIENT WRIST BANDS. PATIENT SPOUSE STATED THAT WE DID NOT MANAGE HIS PAIN WHILE HE WAS HERE IN THE HOSPITAL. PATIENT AND HIS SPOUSE BEGAN WALKING OUT OF THE HOSPITAL, I AND MY PRECEPTEE ABISAI PERALES ESCORTED THEM OUT. ON THE WAY OUT OF THE HOSPITAL SPOUSE WANTED TO MAKE A COMPLAINT TO [employer] WIRER. I SHOWED THEM TO OUR NURSING ADMINISTRATION OFFICE AND LEFT THEM TO MAKE THEIR COMPLAINT. RECEIVED A PHONE CALL FROM [employer] ASKING ME TO COME TO OFFICE TO TALK TO HER AND THEM. PATIENT SAID THEY WERE WILLING TO STAY AN HOUR TO RECEIVE PAIN MEDICATION, BUT THEN STATED THAT HE DIDN'T WANT TO STAY HERE ANY LONGER. PATIENT LEFT HOSPITAL. INFORMED CHARGE NURSE ABISAI TADEO.
== END 2017-05-01 18:30 | disposition home or self-care (01) | DRG 694 ==
LOC: MED 02:05 → MTU 05:26 → MED 06:03
PROVIDERS: ADMIT Hospitalist; ATTEND Hospitalist
DX: C79.89 Secondary malignant neoplasm of other specified sites (principal); E43 Unspecified severe protein-calorie malnutrition; C77.9 Secondary and unspecified malignant neoplasm of lymph node, unspecified; K59.00 Constipation, unspecified; C78.00 Secondary malignant neoplasm of unspecified lung; C45.9 Mesothelioma, unspecified; Z93.1 Gastrostomy status; Z51.5 Encounter for palliative care; I10 Essential (primary) hypertension; E78.5 Hyperlipidemia, unspecified; E11.9 Type 2 diabetes mellitus without complications; F41.9 Anxiety disorder, unspecified; Z80.8 Family history of malignant neoplasm of other organs or systems; Z68.25 Body mass index [BMI] 25.0-25.9, adult; Z79.899 Other long term (current) drug therapy
CPT/HCPCS: 36415; 74022; 80053; 81001; 82948; 83605; 83690; 84484; 85025; 87081; 93005; 96361; 96374; 96375; 96376; 99285; J1170; J1650; J1815; J2060; J2405; J7030

== ENCOUNTER 2017-07-01 19:29 | Inpatient (IN) | payer OTHER ==
[~2017-07-01] VITALS: Ht 170.2 cm; Wt 64.4 kg
[~2017-07-01 19:29] MED LIST changes: -BISA-13 PO; +BISA5ECT45 PO; -GUAI600T72 PO; -LEVA0.042 IH; +LEVA0.043 IH; -MEGE40TA4 PO
[2017-07-01 19:31] VITALS: BP 145/91
--- NOTE | 2017-07-01 19:42 | NUR ---
PT TAKEN TO BED 4
--- NOTE | 2017-07-01 19:58 | NUR ---
57Y M BIB FAMILY C/O PELVIC AND LOWER BACK PAIN X 4 HOURS. PT STATES PAIN IS SHARP RADIATING TO THE LOWER BACK. PT DENIES ANY N/V/D/SOB, CP AT THE MOMENT. PT AAOX4. BREATHING IS UNLABORED AND EVEN. PT AMBULATED TO ER BED WITH STEADY GAIT.
[2017-07-01] MEDS ORDERED: NACL 0.9% 2,000 ML IV ONE (19:59)
[2017-07-01 20:30] LABS: APPEARANCE,URINE CLEAR (CLEAR); BILIRUBIN,URINE NEGATIVE (NEGATIVE); BLOOD, URINE TRACE-L (NEGATIVE); LEUKOCYTE ESTERASE ,URINE NEGATIVE (NEGATIVE); NITRITE, URINE NEGATIVE (NEGATIVE); PH,URINE 6.5 (5.0-9.0); UGLUCOSE NEGATIVE (NEGATIVE)
[2017-07-01 20:31] LABS: BASOPHILS % (AUTO) 0.6 % (0.0-2.0); EOSINOPHILS % (AUTO) 0.6 % (0.0-4.0); HEMATOCRIT 30.1 % (36-52); HEMOGLOBIN 9.6 g/dL (12.0-18.0); LYMPHOCYTES # (AUTO) 0.6 K/uL (2.0-11.5); LYMPHOCYTES % (AUTO) 8.5 % (20.5-51.1); MEAN CORPUSCULAR HEMOGLOBIN 28 pg (27-31); MEAN CORPUSCULAR HGB CONC 32 g/dL (33-37); MEAN CORPUSCULAR VOLUME 87 fL (80-94); MONOCYTES # (AUTO) 0.6 K/uL (0.8-1.0); MONOCYTES % (AUTO) 8.9 % (1.7-9.3); NEUTROPHILS # (AUTO) 5.9 K/uL (1.8-7.7); NEUTROPHILS % (AUTO) 81.4 % (42.2-75.2); PLATELET COUNT (AUTO) 412 K/uL (140-450); RED BLOOD CELL COUNT(AUTO) 3.48 MIL/uL (4.20-6.10); RED CELL DISTRIBUTION WIDTH 21.7 % (11.6-13.7); WHITE BLOOD COUNT (AUTO) 7.1 K/uL (4.8-10.8)
[2017-07-01 20:32] LABS: COLOR,URINE YELLOW (YELLOW)
[2017-07-01] MEDS ORDERED: ONDANSETRON 4 MG/2 ML VIAL IVP ONE (20:35)
[2017-07-01] MEDS ORDERED: HYDROmorphone 1 MG/ML AMP IVP ONE (20:35)
[2017-07-01] MEDS ORDERED: VENL37.55 PO (20:44)
[2017-07-01] MEDS ORDERED: MORP10SO PO (20:44)
[2017-07-01 20:45] LABS: RBC,URINE 0-5 (RARE) /HPF (0-5); WBC,URINE NONE SEEN /HPF (0-5)
[2017-07-01 20:46] LABS: ANION GAP 11.4 (8-16); CARBON DIOXIDE 28.2 mmol/L (21-32); CREATININE 0.7 mg/dL (0.7-1.3); POTASSIUM 3.6 mmol/L (3.5-5.1)
[2017-07-01 20:49] LABS: PROTHROMBIN TIME 10.3 secs (10.8-13.4)
[2017-07-01 20:52] LABS: ALBUMIN 2.8 g/dL (3.4-5.0); TOTAL BILIRUBIN 0.1 mg/dL (0.0-1.0)
[2017-07-01] MEDS ORDERED: ONDANSETRON 4 MG/2 ML VIAL IVP PRN (21:45)
[2017-07-01] MEDS ORDERED: ACETAMINOPHEN 325 MG TAB PO PRN (21:45)
[2017-07-01] MEDS ORDERED: ALBUTEROL 0.083% 2.5 MG/3 ML NEBU INH PRN (21:45)
[2017-07-01] MEDS ORDERED: INSULIN LISPRO SLIDING SCALE 100 UNITS/ML VIAL SUBQ PRN (21:50)
--- NOTE | 2017-07-01 22:19 | NUR ---
Patient will be admitted to care of DR SARAVIA. Admited to TELE . Will go to room 111A. Belongings list completed. Report to DARREN.
--- NOTE | 2017-07-01 22:56 | NUR ---
RECEIVED ADMIT REPORT FROM CHARGE NURSE. 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 PATIENT A&OX4. PATIENT STATES PAIN 6/10 IN ABDOMEN, WILL MEDICATE ORDERED. PATIENT DENIES SOB. IV SITE PATENT AND INTACT. PORTACATH IN RIGHT UPPER CLAVICLE. PATIENT ORIENTED TO UNIT. NO SIGNS OR SYMTPOMS OF ACUTE DISTRESS NOTED. CALL LIGHT WITHIN REACH. WILL CONTINUE TO MONITOR.
[2017-07-01] MEDS: NACL 0.9% 1,000 ML IV SCH (23:01)
[2017-07-01] MEDS: MORPHINE SULFATE 2 MG/ML SYR IVP PRN (23:01)
[2017-07-02] VITALS: BP 150/92
[2017-07-02] MEDS: LORazepam 2 MG/ML VIAL IVP PRN ×6 (00:49→21:23)
[2017-07-02] MEDS ORDERED: HYDROmorphone 1 MG/ML AMP IVP PRN (01:15)
--- NOTE | 2017-07-02 01:15 | NUR ---
PATIENT STATES 10/10 PAIN. BP 170/108 HR 110 BLOOD SUGAR 110. PATIENT DENIES SOB. MD AWARE. MEDICATED ORDERED.
--- NOTE | 2017-07-02 01:20 | NUR ---
REASSESSED PATIENTS BP 150/96. WILL HOLD HYDRALAZINE ORDERED. NO SIGNS OR SYMPTOMS OF ACUTE DISTRESS NOTED. CALL LIGHT WITHIN REACH. WILL CONTINUE TO MONITOR.
--- NOTE | 2017-07-02 02:42 | NUR ---
PATIENT RESTING COMFORTABLE IN BED. PATIENT STATES REDUCED PAIN. NO SIGNS OR SYMPTOMS OF ACUTE DISTRESS NOTED. PATIENT DENIES SOB. CALL LIGHT WITHIN REACH. WILL CONTINUE TO MONITOR.
[2017-07-02] MEDS: hydrALAZINE 20 MG/ML VIAL IVP PRN (03:53)
[2017-07-02 04:00] VITALS: BP 180/114
--- NOTE | 2017-07-02 04:07 | NUR ---
PATIENTS BP 180/114. MEDICATED ORDERED. PATIENT STATES PAIN 11/02. NO SOB NOTED. RESPIRATIONS 16, NON LABORED AND SYMMETRICAL. NO SIGNS OR SYMPTOMS OF ACUTE DISTRESS NOTED. CALL LIGHT WITHIN REACH. WILL CONTINUE TO MONITOR.
[2017-07-02] MEDS: MORPHINE SULFATE 4 MG/ML SYR IVP PRN (05:03)
--- NOTE | 2017-07-02 05:08 | NUR ---
PATIENT IS VERY ANXIOUS AND STATES PAIN 10/10. PATIENT STATES CONCERN REGARDING CHEMO THIS UPCOMING SATURDAY, POLICE THREATENING TO KILL HIM, AND HIS IS SICK IN ANOTHER HOSPITAL. PATIENT REFUSED ATIVAN AND STATED HE WAS GOING TO GO HOME BECAUSE HE FEELS BETTER THERE. HE CAME IN THE ER EARLIER TODAY BECAUSE HE ATE FOOD WITH CHILE AND USUALLY TAKES MORPHINE AND ATIVAN TOGETHER IN PILL FORM WHILE AT HOME. PATIENT EDUCATED REGARDING IV MEDICATION BEING QUICKER ROUTE OF RELIEF. PATIENT AGREED TO TAKE MORPHINE FOR PAIN AND WAIT FOR EVALUATION CONCRETE STONE FINISHER AND CHARGE NURSE AWARE. CALL LIGHT WITHIN REACH. WILL CONTINUE TO MONITOR
[2017-07-02] MEDS: BLOOD GLUCOSE MONITORING 1 DEV DEV FS SCH ×4 (06:30→21:48)
[2017-07-02 06:37] LABS: BASOPHILS % (AUTO) 0.3 % (0.0-2.0); EOSINOPHILS # (AUTO) 0.1 K/uL (0-0.4); EOSINOPHILS % (AUTO) 0.9 % (0.0-4.0); HEMATOCRIT 32.2 % (36-52); HEMOGLOBIN 10.4 g/dL (12.0-18.0); LYMPHOCYTES # (AUTO) 0.5 K/uL (2.0-11.5); LYMPHOCYTES % (AUTO) 5.1 % (20.5-51.1); MEAN CORPUSCULAR HEMOGLOBIN 28 pg (27-31); MEAN CORPUSCULAR HGB CONC 32 g/dL (33-37); MEAN CORPUSCULAR VOLUME 88 fL (80-94); MONOCYTES # (AUTO) 0.6 K/uL (0.8-1.0); MONOCYTES % (AUTO) 6.6 % (1.7-9.3); NEUTROPHILS # (AUTO) 8.6 K/uL (1.8-7.7); NEUTROPHILS % (AUTO) 87.1 % (42.2-75.2); PLATELET COUNT (AUTO) 357 K/uL (140-450); RED BLOOD CELL COUNT(AUTO) 3.67 MIL/uL (4.20-6.10); RED CELL DISTRIBUTION WIDTH 21.5 % (11.6-13.7)
[2017-07-02 07:01] LABS: ALBUMIN 2.7 g/dL (3.4-5.0); ANION GAP 11.3 (8-16); CARBON DIOXIDE 25.6 mmol/L (21-32); CREATININE 0.5 mg/dL (0.7-1.3); POTASSIUM 3.9 mmol/L (3.5-5.1); TOTAL BILIRUBIN 0.2 mg/dL (0.0-1.0)
[2017-07-02 07:09] LABS: WHITE BLOOD COUNT (AUTO) 9.8 K/uL (4.8-10.8)
--- NOTE | 2017-07-02 07:27 | NUR ---
ENDORSED PLAN OF CARE TO AM RN. PATIENT IN STABLE CONDITION. NO SIGNS OR SYMPTOMS OF ACUTE DISTRESS NOTED. SAFETY MEASURES ENSURED.
--- NOTE | 2017-07-02 07:30 | NUR ---
RECEIVED PT REPORT AT BEDSIDE FROM NIGHT NURSE. PT IS AAOX4 AND SHOWS NO S/S OF ACUTE DISTRESS ON ROOM AIR. PT STATES TOLERABLE ABD PAIN OF 4/10. SKIN IS INTACT. GT IN PLACE AT LUQ PATENT AND INTACT. PT STATES HE DOES NOT USE IT ANYMORE SINCE 06/26/17 AND IS SCHEDULED TO HAVE IT REMOVED THIS Saturday07/05/17. NOTED R AC IV WITH IVF'S INFUSING WELL. PT WAS EXPLAINED POC FOR TODAY. PT VERBALIZED UNDERSTANDING. THE BED IS IN LOW POSITION WITH THE CALL LIGHT WITHIN REACH.
[2017-07-02] MEDS: NACL 0.9% 1,000 ML IV SCH ×2 (07:45→17:45)
[2017-07-02 07:58] VITALS: BP 140/89
--- NOTE | 2017-07-02 08:15 | NUR ---
PT IS ASKING FOR ATIVAN; HOWEVER, PT WAS NOTIFIED TWICE ALREADY THAT IT IS NOT AVAILABLE UNTIL 0940. PT WAS EXPLAINED AGAIN HOWEVER NEEDS CONSTANT REINFORCEMENT OF CARE.
--- NOTE | 2017-07-02 08:53 | NUR ---
PATIENT HAS BEEN SCREENED AND CATEGORIZED MODERATE NUTRITION RISK. PATIENT WILL BE SEEN WITHIN 3-5 DAYS OF ADMISSION. 07/04/17-07/06/[address]
[2017-07-02] MEDS: FOLIC ACID 1 MG TAB PO SCH (09:49)
[2017-07-02] MEDS: MORPHINE SULFATE 2 MG/ML SYR IVP PRN (09:49)
--- NOTE | 2017-07-02 09:50 | NUR ---
PT C/O 02/02 ABD PAIN AND WAS GIVEN MORPHINE 2 MG IVP. ADMINISTERED SCHEDULED MEDICATIONS WELL AND PATIENT TOLERATED WELL. PT WAS GIVEN ATIVAN 2 MG IVP WELL FOR ANXIETY. PT IS NOW RESTING IN BED. WILL CONTINUE TO MONITOR.
[2017-07-02] MEDS: ENOXAPARIN 40 MG/0.4 ML SYR SUBQ SCH (09:55)
[2017-07-02 12:00] VITALS: BP 150/93
--- NOTE | 2017-07-02 12:00 | NUR ---
PATIENT IS SLEEPING AND SHOWS NO S/S OF ACUTE DISTRESS ON ROOM AIR.
--- NOTE | 2017-07-02 12:40 | NUR ---
PT WAS FOUND WITH IV DISCONTINUED. IV HAS CANNULA INTACT. PT STATES, " I DID NOT DO THAT." PT WAS EXPLAINED IMPORTANCE OF HAVING IV DURING HOSPITAL STAY. PT AGREES TO HAVE A NEW IV. YEISON BARONE WILL ATTEMPT.
--- NOTE | 2017-07-02 13:00 | NUR ---
CM NOTE INITIAL REVIEW FAXED TO [facility] [phone] NIKA OLSONA # [phone]
--- NOTE | 2017-07-02 13:15 | NUR ---
PT HAS NEW IV AT L AC 20G WITH IVF'S INFUSING WELL.
--- NOTE | 2017-07-02 14:30 | NUR ---
PT IS SLEEPING AND SHOWS NO S/S OF ACUTE DISTRESS ON ROOM AIR. BED IS IN LOW POSITION WITH CALL LIGHT WITHIN REACH.
--- NOTE | 2017-07-02 15:08 | NUR ---
SPOKE WITH SANAM OF PATIENT AND NOTIFIED HER OF POC FOR TODAY. SHE VERBALIZED UNDERSTANDING OF POC. ALL QUESTIONS ANSWERED.
[2017-07-02 16:00] VITALS: BP 151/95
--- NOTE | 2017-07-02 16:30 | NUR ---
PT IS RESTING COMFORTABLY IN BED AND SHOWS NO S/S OF ACUTE DISTRESS ON ROOM AIR. THE BED IS IN LOW POSITION WITH CALL LIGHT WITHIN REACH.
--- NOTE | 2017-07-02 17:30 | NUR ---
FOUND PT WITH IV DISCONTINUED. PT STATED, "I'M GOING HOME TONIGHT" PT WAS EDUCATED ON POC AND THAT THERE WAS NO DISCHARGE ORDER FOR HIM TONIGHT. PT NODDED AND VERBALIZED UNDERSTANDING HOWEVER PT IS CONFUSED. NEW IV WILL BE ATTEMPTED AGAIN.
--- NOTE | 2017-07-02 18:00 | NUR ---
NEW IV AT L FA 22 G.
--- NOTE | 2017-07-02 19:05 | NUR ---
GAVE PT REPORT AT BEDSIDE TO NIGHT NURSE. PT ENDORSED IN STABLE CONDITION.
--- NOTE | 2017-07-02 19:06 | NUR ---
PATIENT RESTING UPON ENTRY. PATIENT A&OX4. PATIENT DENIES PAIN. IV SITE NON PATENT, WILL START NEW IV. NO SIGNS OR SYMPTOMS OF ACUTE DISTRESS NOTED. CALL LIGHT WITHIN REACH. WILL CONTINUE TO MONITOR.
[2017-07-02 20:00] VITALS: BP 156/90
[2017-07-02] MEDS ORDERED: VENLAFAXINE XR 75 MG CAPER PO SCH (21:00)
--- NOTE | 2017-07-02 22:14 | NUR ---
PATIENT RESTING IN BED. PATIENT DENIES PAIN. NO SIGNS OR SYMPTOMS OF ACUTE DISTRESS NOTED. CALL LIGHT WITHIN REACH. WILL CONTINUE TO MONITOR.
[2017-07-03] VITALS: BP 149/90
[2017-07-03] MEDS: LORazepam 2 MG/ML VIAL IVP PRN ×2 (01:55→07:00)
--- NOTE | 2017-07-03 01:58 | NUR ---
PATIENT STATES FEELINGS OF ANXIETY. PATIENT APPEARS ANXIOUS. MEDICATED ORDERED. PATIENT DENIES PAIN. RESPIRATIONS NON LABORED AND SYMMETRICAL. CALL LIGHT WITHIN REACH. WILL CONTINUE TO MONITOR.
[2017-07-03] MEDS: MORPHINE SULFATE 4 MG/ML SYR IVP PRN (02:55)
[2017-07-03] MEDS: NACL 0.9% 1,000 ML IV SCH (03:45)
[2017-07-03 04:00] VITALS: BP 158/92
--- NOTE | 2017-07-03 04:36 | NUR ---
PATIENT RESTING IN BED. PATIENT DENIES PAIN. NO SIGNS OR SYMPTOMS OF ACUTE DISTRESS NOTED. CALL LIGHT WITHIN REACH. WILL CONTINUE TO MONITOR.
[2017-07-03] MEDS: hydrALAZINE 20 MG/ML VIAL IVP PRN (05:55)
--- NOTE | 2017-07-03 05:56 | NUR ---
PATIENT AWAKE IN BED. PATIENTS BLOOD PRESSURE 166/111 MEDICATED ORDERED. WILL REASSESS. PATIENT STATES ANXIETY. WILL MEDICATE ORDERED. NO SIGNS OR SYMPTOMS OF ACUTE DISTRESS NOTED. CALL LIGHT WITHIN REACH. WILL CONTINUE TO MONITOR.
[2017-07-03] MEDS: BLOOD GLUCOSE MONITORING 1 DEV DEV FS SCH ×2 (06:52→11:30)
[2017-07-03 07:09] LABS: ALBUMIN 2.7 g/dL (3.4-5.0); ANION GAP 14.9 (8-16); CARBON DIOXIDE 23.1 mmol/L (21-32); CREATININE 0.5 mg/dL (0.7-1.3); TOTAL BILIRUBIN 0.4 mg/dL (0.0-1.0)
--- NOTE | 2017-07-03 07:29 | NUR ---
ENDORSED PLAN OF CARE TO AM RN. PATIENT IN STABLE CONDITION. NO SIGNS OR SYMPTOMS OF ACUTE DISTRESS NOTED. CALL LIGHT WITHIN REACH. SAFETY MEASURES ENSURED.
--- NOTE | 2017-07-03 07:30 | NUR ---
RECEIVED PT REPORT AT BEDSIDE FROM NIGHT NURSE. PT IS AAOX4 AND SHOWS NO S/S OF ACUTE DISTRESS ON ROOM AIR. PT STATES ABD PAIN OF 6/10. SKIN IS INTACT. GT IN PLACE AT LUQ PATENT AND INTACT. PT STATES HE DOES NOT USE IT ANYMORE SINCE 06/26/17 AND IS SCHEDULED TO HAVE IT REMOVED THIS Saturday07/05/17. NOTED L H IV WITH IVF'S INFUSING WELL. PT WAS EXPLAINED POC FOR TODAY. PT VERBALIZED UNDERSTANDING. THE BED IS IN LOW POSITION WITH THE CALL LIGHT WITHIN REACH.
[2017-07-03 08:00] VITALS: BP 125/62
[2017-07-03] MEDS: FOLIC ACID 1 MG TAB PO SCH (08:52)
[2017-07-03] MEDS: MORPHINE SULFATE 2 MG/ML SYR IVP PRN (08:54)
[2017-07-03] MEDS: ENOXAPARIN 40 MG/0.4 ML SYR SUBQ SCH (08:54)
--- NOTE | 2017-07-03 09:00 | NUR ---
ADMINISTERED SCHEDULED MEDICATIONS. PT TOLERATED WELL. PT C/O ABD PAIN 6/10 AND WAS GIVEN MORPHINE 2 MG IVP. WILL REASSESS PAIN IN 30 MIN.
--- NOTE | 2017-07-03 09:30 | NUR ---
PT IS SLEEPING AND SHOWS NO S/S OF ACUTE DISTRESS.
[2017-07-03 12:00] VITALS: BP 148/89
--- NOTE | 2017-07-03 12:00 | NUR ---
PT IS IN BED AND WAS NOTIFIED OF DISCHARGE FOR TODAY. PT SPOKE WITH SANAM AND SHE WAS NOTIFIED WELL. PT'S STATES SHE WILL BE PICKING UP AROUND 1300. PT DENIES PAIN AND SOB. THE BED IS IN LOW POSITION WITH CALL LIGHT WITHIN REACH. ALL OF PT'S NEEDS ARE MET AT THIS TIME. WILL CONTINUE TO MONITOR.
--- NOTE | 2017-07-03 12:47 | NUR ---
CM NOTE CONCURRENT REVIEW FAXED TO [facility] [phone] JANUARY [phone]
--- NOTE | 2017-07-03 13:05 | NUR ---
PT HAS BEEN DISCHARGED. ALL PAPERWORK SIGNED. ALL QUESTIONS ANSWERED. PT VERBALIZED UNDERSTANDING OF CONTINUITY OF CARE. ALL BELONGINGS, DISCHARGE INSTRUCTIONS, WERE GIVEN TO PATIENT. IV WAS DISCONTINUED WITH CANNULA INTACT. WRISTBANDS AND TELE MONITOR REMOVED. PT WAS WHEELED OFF UNIT IN WHEEL CHAIR WITH GALI ZALDIVAR PRESENT AT SIDE. PT LEFT IN STABLE CONDITION.
== END 2017-07-03 13:05 | disposition home or self-care (01) | DRG 282 ==
LOC: MED 19:29 → MTU 21:49
PROVIDERS: ADMIT Hospitalist; ATTEND Hospitalist
DX: K85.90 Acute pancreatitis without necrosis or infection, unspecified (principal); E44.0 Moderate protein-calorie malnutrition; C45.9 Mesothelioma, unspecified; I10 Essential (primary) hypertension; F32.9 Major depressive disorder, single episode, unspecified; F41.9 Anxiety disorder, unspecified; E11.9 Type 2 diabetes mellitus without complications; Z68.22 Body mass index [BMI] 22.0-22.9, adult; Z92.21 Personal history of antineoplastic chemotherapy; Z92.3 Personal history of irradiation; Z93.1 Gastrostomy status; Z85.118 Personal history of other malignant neoplasm of bronchus and lung; Z79.899 Other long term (current) drug therapy
CPT/HCPCS: 36415; 71010; 80053; 81001; 82948; 83605; 83690; 83880; 84484; 85025; 85610; 87040; 87081; 87086; 93005; 96361; 96374; 96375; 99285; J0360; J1170; J1650; J1815; J2060; J2270; J2405; J7030

== ENCOUNTER 2017-07-19 05:40 | Inpatient (IN) | payer OTHER ==
[~2017-07-19] VITALS: Ht 167.6 cm; Wt 62.6 kg
[~2017-07-19 05:40] MED LIST changes: -ASPI81CT89 PO; -BISA5ECT45 PO; -DIAZ2TAB6 PO; -FENT100T TD; -GLIP5TAB4 PO; -LACT10SO11; -METO25TA PO; +MORP10SO PO; -SENN-72 PO
[2017-07-19 05:49] VITALS: BP 133/84
--- NOTE | 2017-07-19 05:54 | NUR ---
PT TAKEN TO BED 6
--- NOTE | 2017-07-19 05:55 | NUR ---
57/M BIB SPOUSE C/O 02/02 PAIN TO GTUBE SITE. PER , PT DOES NOT ALLOW TO ACCESS GTUBE D/T PAIN/BOTHERING. LAST ACCESS WAS 4 DAYS AGO, REPORTS GTUBE WAS ACCESSIBLE. PT PRIMARILY EATS AND TAKES MEDS PO. GTUBE SITE WITHOUT REDNESS NOTED, NO DISCHARGE. DENIES DISCHARGE/FEVER/REDNESS TO SITE. ERMD MADE AWARE OF PT STATUS
--- NOTE | 2017-07-19 06:00 | NUR ---
Alison martin in ED - 07/19/[address] Tolentino evaluating patient at bedside.
--- NOTE | 2017-07-19 06:15 | NUR ---
Dr. Tolentino evaluating patient at bedside.
[2017-07-19] MEDS ORDERED: NACL 0.9% 1,000 ML IV ONE ×2 (06:25→07:40)
[2017-07-19] MEDS ORDERED: HYDROmorphone 1 MG/ML AMP IVP ONE ×2 (06:25→07:25)
[2017-07-19 07:09] LABS: BASOPHILS # (AUTO) 0.1 K/uL (0.00-0.22); BASOPHILS % (AUTO) 0.8 % (0.0-2.0); EOSINOPHILS # (AUTO) 0.1 K/uL (0-0.4); EOSINOPHILS % (AUTO) 1.3 % (0.0-4.0); HEMOGLOBIN 9.2 g/dL (12.0-18.0); LYMPHOCYTES # (AUTO) 0.5 K/uL (2.0-11.5); LYMPHOCYTES % (AUTO) 7.2 % (20.5-51.1); MEAN CORPUSCULAR HEMOGLOBIN 27 pg (27-31); MEAN CORPUSCULAR HGB CONC 32 g/dL (33-37); MEAN CORPUSCULAR VOLUME 85 fL (80-94); MONOCYTES # (AUTO) 0.6 K/uL (0.8-1.0); MONOCYTES % (AUTO) 8.8 % (1.7-9.3); NEUTROPHILS # (AUTO) 5.7 K/uL (1.8-7.7); NEUTROPHILS % (AUTO) 81.9 % (42.2-75.2); PLATELET COUNT (AUTO) 474 K/uL (140-450); RED BLOOD CELL COUNT(AUTO) 3.43 MIL/uL (4.20-6.10)
--- NOTE | 2017-07-19 07:20 | NUR ---
RECIEVED VERBAL ORDER TO FLUSH GTUBE. GTUBE WITH 5CC OF RESIDUAL NOTED, PLACEMENT CHECKED, AIR AUSCULTATED OVER STOMACH, FLUSHED WITH 30CC OF SW. PT PELON WELL.
--- NOTE | 2017-07-19 07:22 | NUR ---
Pt report given to LESLIE BARONE. Transfer of care at this time.
--- NOTE | 2017-07-19 07:23 | NUR ---
received report from Yancy RN; pt laying supine in [facility]; pt requesting pain medication; new orders given; nad; will continue to monitor
[2017-07-19] MEDS ORDERED: LORazepam 2 MG/ML VIAL IVP ONE (07:25)
[2017-07-19 07:26] LABS: ANION GAP 12.8 (8-16); CARBON DIOXIDE 27.9 mmol/L (21-32); CREATININE 0.6 mg/dL (0.7-1.3); POTASSIUM 3.7 mmol/L (3.5-5.1)
[2017-07-19 07:28] LABS: AMYLASE 200 U/L (25-115); LIPASE 1462 U/L (73-393)
[2017-07-19 07:32] LABS: ALBUMIN 2.7 g/dL (3.4-5.0); TOTAL BILIRUBIN 0.2 mg/dL (0.0-1.0)
[2017-07-19] MEDS ORDERED: NACL 0.9% 1,000 ML IV SCH (07:50)
[2017-07-19] MEDS ORDERED: ACETAMINOPHEN 325 MG TAB PO PRN (07:50)
[2017-07-19] MEDS ORDERED: ONDANSETRON 4 MG/2 ML VIAL IVP PRN (07:50)
[2017-07-19] MEDS ORDERED: INSULIN LISPRO SLIDING SCALE 100 UNITS/ML VIAL SUBQ PRN (07:55)
[2017-07-19] MEDS ORDERED: ALBUTEROL 0.083% 2.5 MG/3 ML NEBU INH PRN (07:55)
--- NOTE | 2017-07-19 07:58 | NUR ---
pt to ct via imani accompanied by echocardiography radiology technologist
--- NOTE | 2017-07-19 08:10 | NUR ---
pt returned from ct via gurney accompanied by limited radiology technician
--- NOTE | 2017-07-19 08:15 | NUR ---
Patient will be admitted to care of [facility]. Admited to Tele. Will go to room 112A. Belongings list completed. Report to Miryam BARONE.
[2017-07-19 08:30] VITALS: BP 154/92
--- NOTE | 2017-07-19 09:00 | NUR ---
Admitted from ED, with chief complaint of ABDOMINAL PAIN, DX PANCREATITIS. PT AAOX4. NO SOB NOTED. NO C/O PAIN AT THIS TIME. WITH RT UPPER CHEST PORTACATH, PATENT AND INTACT. CHEST, DIMINISHED AIR ENTRY TO THE BASES. ABDOMEN SOFT, BOWEL SOUNDS PRESENT, WITH G-TUBE IN PLACED, FLUSHING WELL, 10 MLS RESIDUAL NOTED, NO IN USE, PT HAS CLEAR LIQUIDS PO. PT IS A 57 y/o ,Male, Cooperative, oriented to call light, bed, phone,television, bathroom, smoking policy, visiting hours, procedures, ID bracelet on. Belongings list checked.
[2017-07-19] MEDS: HYDROmorphone 1 MG/ML AMP IVP PRN (10:55)
[2017-07-19] MEDS: ENOXAPARIN 40 MG/0.4 ML SYR SUBQ SCH (10:58)
--- NOTE | 2017-07-19 11:15 | NUR ---
PT AMBULATING TO THE BATHROOM WITH STANDBY ASSIST, ACTIVITY TOLERATED WELL. PT STATED HE USES A CANE AT HOME AT TIMES WHEN HE FEELS WEAK.
[2017-07-19] MEDS: BLOOD GLUCOSE MONITORING 1 DEV DEV FS SCH ×3 (11:30→21:08)
[2017-07-19 12:00] VITALS: BP 154/110
--- NOTE | 2017-07-19 12:15 | NUR ---
PT TOLERATED CLEAR LIQUIDS WELL. NO N&V NOTED.
[2017-07-19 12:45] VITALS: BP 173/110
--- NOTE | 2017-07-19 13:30 | NUR ---
PT SEEN BY MANJIT WITH NEW ORDERS.
[2017-07-19] MEDS: FOLIC ACID 1 MG TAB PO SCH (14:19)
[2017-07-19] MEDS: hydrALAZINE 20 MG/ML VIAL IVP PRN (14:20)
[2017-07-19 15:30] VITALS: BP 153/95
--- NOTE | 2017-07-19 15:45 | NUR ---
PT RESTING. NO SOB NOTED. NO COMPLAINTS MADE.
[2017-07-19] MEDS: DEXT 5% /NACL 0.9% 1,000 ML IV SCH (16:11)
[2017-07-19] MEDS: MORPHINE SULFATE 2 MG/ML SYR IVP PRN ×2 (16:12→21:13)
--- NOTE | 2017-07-19 17:45 | NUR ---
PT AWAKE, TALKING TO AT THE BEDSIDE VISITING.
--- NOTE | 2017-07-19 19:03 | NUR ---
PT RESTING. NO SOB NOTED. NO SIGNS OF PAIN. WILL ENDORSE TO NEXT SHIFT NURSE FOR CONTINUITY OF CARE.
--- NOTE | 2017-07-19 19:15 | NUR ---
RECEIVED PT FROM PHONG RN PT IS AAOX3 WITH HX CA MESOT[place]LI[place], ON TELEMETRY ST ON T PORT CATH ON RT UPPER CHEST INFUSING WELL, NOT DISTRESS NOTED AT THHIS TIME INITIAL ASSESSMENT DONE
[2017-07-19 20:00] VITALS: BP 152/95
[2017-07-19] MEDS ORDERED: VENLAFAXINE XR 75 MG CAPER PO SCH (21:00)
--- NOTE | 2017-07-19 21:00 | NUR ---
BLOOD SUGAR TEST 106 PT EATING WELLL HIS HS SNACK
[2017-07-20] VITALS: BP 144/96
--- NOTE | 2017-07-20 | NUR ---
ST ON TELEMETRY, DENIES ANY PAIN OR DISCOMFORT G TUBE PATENT, NOT DISTRESS AT THIS TIME
[2017-07-20] MEDS: HYDROmorphone 1 MG/ML AMP IVP PRN ×4 (01:20→19:21)
[2017-07-20] MEDS: DEXT 5% /NACL 0.9% 1,000 ML IV SCH ×2 (03:41→09:20)
[2017-07-20 03:54] VITALS: BP 161/103
[2017-07-20] MEDS: hydrALAZINE 20 MG/ML VIAL IVP PRN (03:58)
--- NOTE | 2017-07-20 04:00 | NUR ---
SPONGE BATH GIVEN LINNEN CHANGED PT IS MONITORING FOR HIGH BP
[2017-07-20] MEDS: BLOOD GLUCOSE MONITORING 1 DEV DEV FS SCH ×3 (06:49→17:17)
[2017-07-20] MEDS: MORPHINE SULFATE 2 MG/ML SYR IVP PRN (06:50)
--- NOTE | 2017-07-20 06:58 | NUR ---
BLOOD SUGAR TEST 122, PT ON TELE ST PAIN MEDIC WAS GIVEN ORDER WILL BE ENDORSED TO DAY SHIFT,.
--- NOTE | 2017-07-20 07:10 | NUR ---
ENDORSEMENT RECEIVED FROM HOSPITAL RECEIVING CLERK NURSE. PATIENT IS STABLE AT THIS TIME, RESPIRATION EVEN, UNLABOR. SKIN WARM AND DRY TO THE TOUCH. WILL CONTINUE TO MONITOR
--- NOTE | 2017-07-20 07:48 | NUR ---
PATIENT HAS BEEN SCREENED AND CATEGORIZED HIGH NUTRITION RISK. PATIENT WILL BE SEEN WITHIN 1-2 DAYS OF ADMISSION. 07/20/17 - 07/21/17 PRINCE FELTON MBA, RD
[2017-07-20 07:49] LABS: BASOPHILS # (AUTO) 0.1 K/uL (0.00-0.22); BASOPHILS % (AUTO) 0.9 % (0.0-2.0); EOSINOPHILS # (AUTO) 0.1 K/uL (0-0.4); EOSINOPHILS % (AUTO) 1.4 % (0.0-4.0); HEMATOCRIT 30.8 % (36-52); HEMOGLOBIN 9.9 g/dL (12.0-18.0); LYMPHOCYTES # (AUTO) 0.3 K/uL (2.0-11.5); LYMPHOCYTES % (AUTO) 4.5 % (20.5-51.1); MEAN CORPUSCULAR HEMOGLOBIN 27 pg (27-31); MEAN CORPUSCULAR HGB CONC 32 g/dL (33-37); MEAN CORPUSCULAR VOLUME 85 fL (80-94); MONOCYTES # (AUTO) 0.5 K/uL (0.8-1.0); MONOCYTES % (AUTO) 7.3 % (1.7-9.3); NEUTROPHILS # (AUTO) 6.3 K/uL (1.8-7.7); NEUTROPHILS % (AUTO) 85.9 % (42.2-75.2); PLATELET COUNT (AUTO) 455 K/uL (140-450); RED BLOOD CELL COUNT(AUTO) 3.61 MIL/uL (4.20-6.10); RED CELL DISTRIBUTION WIDTH 19.1 % (11.6-13.7); WHITE BLOOD COUNT (AUTO) 7.3 K/uL (4.8-10.8)
[2017-07-20] MEDS: LORazepam 1 MG TAB PO PRN ×3 (07:59→16:35)
--- NOTE | 2017-07-20 07:59 | NUR ---
PT C/O FEELING ANXIOUS, PT APPEARS RESTLESS, PRN ATIVAN GIVEN AT THIS TIME. WILL CONTINUE TO MONITOR.
[2017-07-20 08:00] VITALS: BP 145/90
--- NOTE | 2017-07-20 08:00 | NUR ---
PATIENT IS AWAKE, ALERT, ORIENTED X 4. PUPILS EQUAL REACTIVE TO LIGHT. RESPIRATION EVEN, LUNGS SOUND CLEAR THROUGHOUT. CARDIAC WITH S1,S2 PRESENT. BOWEL SOUND ACTIVE 4 QUADRANTS. SKIN DRY AND WARM TO THE TOUCH. CHRISTA CATH ON THE RIGHT CHEST INFUSING D5NS @100 ML/HR. PATIENT DENIED PAIN AT THIS TIME. CALL LIGHT WITHIN REACH. WILL CONTINUE TO MONITOR
[2017-07-20 08:12] LABS: ALBUMIN 2.6 g/dL (3.4-5.0); ANION GAP 14.4 (8-16); CARBON DIOXIDE 22.5 mmol/L (21-32); CREATININE 0.4 mg/dL (0.7-1.3); TOTAL BILIRUBIN 0.3 mg/dL (0.0-1.0)
--- NOTE | 2017-07-20 08:15 | NUR ---
DR. SARAVIA WAS MADE AWARE OF THE CRITICAL LAB POTASSIUM 2.9. WILL MEDICATE PER ORDER
[2017-07-20 08:20] LABS: POTASSIUM 2.9 mmol/L (3.5-5.1)
[2017-07-20] MEDS ORDERED: POTASSIUM CHLORIDE 10 MEQ TABER PO SCH (09:00)
[2017-07-20] MEDS: FOLIC ACID 1 MG TAB PO SCH (09:18)
[2017-07-20] MEDS: ENOXAPARIN 40 MG/0.4 ML SYR SUBQ SCH (09:20)
--- NOTE | 2017-07-20 10:00 | NUR ---
PATIENT IS AWAKE, ALERT. NO DISTRESS NOTED. RESPIRATION EVEN. DENIED PAIN AT THIS TIME. CALL LIGHT WITHIN REACH. WILL CONTINUE TO MONITOR
[2017-07-20 12:00] VITALS: BP 144/90
--- NOTE | 2017-07-20 12:15 | NUR ---
PATIENT IS AWAKE, ALERT. RESPIRATION EVEN, NO DISTRESS NOTED. PATIENT VERBALIZED HE WAS FEEING ANXIOUS. PATIENT APPEARED RESTLESSNESS. WILL MEDICATE PER ORDER. CALL LIGHT WITHIN REACH. WILL CONTINUE TO MONITOR
--- NOTE | 2017-07-20 14:30 | NUR ---
PT C/O ABD PAIN, MEDICATED FOR PAIN AT THIS TIME, PT ALREADY DRESSED HIMSELF IN HIS CLOTHES, UP OUT OF BED TO BATHROOM WITH STEADY GAIT, PT STATES HE WANTS TO GO HOME AMA?, PT ROMANSH SPEAKING, CALLED TELEPHONE HYDROGRAPHIC SURVEYOR MORENO Gomes , UNABLE TO UNDERSTAND PT DUE TO HIS RASPY VOICE AND CONFUSION, PT STATES IT'S OK TO CALL SANAM MARION TO COME TO BEDSIDE SOON, DR SARAVIA MADE AWARE OF PT'S CONFUSION AND PT'S WISH TO GO AMA, DR SARAVIA TO SEE PT AND WHEN SHE ARRIVES.
[2017-07-20 16:00] VITALS: BP 158/103
--- NOTE | 2017-07-20 16:35 | NUR ---
PATIENT IS AWAKE, ALERT. COMPLAINED OF FEELING ANXIOUS. MED WAS GIVEN PER ORDER. RESPIRATION EVEN. PATIENT IS STABLE AT THIS TIME. DENIED OF PAIN. CALL LIGHT WITHIN REACH. WILL CONTINUE TO MONITOR
--- NOTE | 2017-07-20 18:42 | NUR ---
PATIENT IS AWAKE, ALERT. RESPIRATION EVEN, UNLABOR. DENIED OF PAIN. PATIENT IS STABLE AT THIS TIME. CALL LIGHT WITHIN REACH. WILL CONTINUE TO MONITOR
--- NOTE | 2017-07-20 19:32 | NUR ---
ENDORSEMENT GIVEN TO THE ESTATE PLANNING DIRECTOR NURSE. PATIENT IS STABLE AT THIS TIME
--- NOTE | 2017-07-20 19:33 | NUR ---
RECEIVED PT FROM RAQUEL RN PT ESTONIAN SPEAKER AAOX2 CONFUSED, AMBULATORY, NOT RESP DISTRESS NOTED AT THIS TIME RESTING ON BED IV ON RT UPPER CHEST PORT CATH G TUBE FEEDING PATENT ON TELEMETRY SR INITIAL ASSESSMENT DONE
[2017-07-20 19:40] VITALS: BP 147/86
--- NOTE | 2017-07-20 19:45 | NUR ---
PT DENIES ANY PAIN,
--- NOTE | 2017-07-20 19:50 | NUR ---
SECURITY WAS CALLED PT OUT THE BED NOT MONITOR TO RECORD
--- NOTE | 2017-07-20 20:22 | NUR ---
PT ON BED ON TELEMETRY ST PT REFUSED TO HAVE A TELEMETRY BOX AND IS REMOVING CONSTANTLY PRIMARY PHKYSICIAN WILL BE NOTIFY HE VERBALIZED TO WANT TO GO HOME PT ON HIS WAY TO THE HOSPITAL.
--- NOTE | 2017-07-20 20:30 | NUR ---
PT AND FAMILY AT BED SIDE OF THE PT AND HE VERBALIZED TO HIS FAMILY TO GO HOME A PRIMARY NURSE PERSONALLY EXPLAINED TO THE PT AND FAMILY THE RISK AND CONSEQUENCES INVOLVED IN LEAVING THE HOSPITAL AT THIS TIME, THE BENEFITS OF CONTINUED TREATMENT AND HOSPITALIZATION. CHARGE NURSE IRMA AND MITALI ELECTORATE OFFICER AWARE OF PT CONDITION, DR CREWS ADULT LITERACY INSTRUCTOR FOR DR SARAVIA WAS NOTIFY PT CONDITION
--- NOTE | 2017-07-20 20:35 | NUR ---
PT 'S , SANAM KOENIG SIGN AMA AND PT AND FAM LEAVE THE HOSPITAL, DR CREWS, CHARGE NURSE AND MITALI FREEZING ROOM WORKER AWARE
--- NOTE | 2017-07-23 15:16 | NUR ---
CM NOTE RETRO: ER DR'S NOTES, H&P, PROGRESS NOTES AND DISCHARGE SUMMARY FAXED TO [facility] [phone] JANUARY # [phone]
== END 2017-07-20 20:35 | disposition left against medical advice (07) | DRG 282 ==
LOC: MED 05:40 → MTU 07:50
PROVIDERS: ADMIT Hospitalist; ATTEND Hospitalist
DX: K85.90 Acute pancreatitis without necrosis or infection, unspecified (principal); Z93.1 Gastrostomy status; C45.9 Mesothelioma, unspecified; Z53.21 Procedure and treatment not carried out due to patient leaving prior to being seen by health care provider; I10 Essential (primary) hypertension; E11.9 Type 2 diabetes mellitus without complications; Z91.19 Patient's noncompliance with other medical treatment and regimen
CPT/HCPCS: 36415; 80053; 82150; 82948; 83605; 83690; 83735; 85025; 87040; 87081; 96361; 96374; 96375; 96376; 99285; J0360; J1170; J1650; J1815; J2060; J2270; J7030; J7042